=== PATIENT | female | born 1945 | race Caucasian/White ===

== ENCOUNTER → 2016-04-09 | Outpatient (CLI) | payer MEDICARE ==
[2016-04-01 15:24] VITALS: BMI 23.8
[2016-04-09 14:13] VITALS: BP 148/72; PULSE 71; RESP 16; TEMP 98.1
--- NOTE | 2016-04-09 15:06 | P.CONS ---
History of Present Illness - Reason for Consult Consult date: 04/09/16 - History of Present Illness The initial consultation visit for this 70 years old female, with 2 years history of severe low back pain, he reported that the pain started after she fell at home, and she continued to have severe low back pain, the pain is constant and increased with any activity, and associated with some numbness and tingling in her right lower extremity, mostly to the lateral aspect of right leg , she denies any motor or sensory deficit, he denies any change in the bowel movements or urination, she has no fever or night sweats, she had lumbar epidural steroid injection, and transforaminal epidural steroid injection and she get no benefit from it, she had physical therapy with some benefit, she tried Neurontin and she had side effects from it (hallucination ), intensity of the pain 8/10 increased to 10 over 10, she is ambulating using a walker/cane Past Medical History Past Medical History: Neurologic Disorder Additional Past Medical History / Comment(s): Hx Parkinsons. History of Any Multi-Drug Resistant Organisms: None Reported Past Surgical History: Hysterectomy Past Anesthesia/Blood Transfusion Reactions: No Reported Reaction Past Psychological History: Anxiety, Depression Smoking Status: Never smoker Past Alcohol Use History: Rare Past Drug Use History: None Reported - Past Family History Mother Family Medical History: No Reported History Medications and Allergies Home Medications Medication Instructions Recorded Confirmed Type Acetaminophen [Tylenol] 325 mg PO Q4H PRN 04/01/16 04/09/16 History Baclofen 10 mg PO HS 04/01/16 04/09/16 History Carbidopa-Levodopa 25-100 mg 1 each PO TID 04/01/16 04/09/16 History [Sinemet 25-100] Meloxicam [Mobic] 7.5 mg PO BID 04/01/16 04/09/16 History Menthol [Biofreeze] 1 applic TOPICAL DAILY 04/01/16 04/09/16 History Allergies Allergy/AdvReac Type Severity Reaction Status Date / Time gabapentin [From Neurontin] AdvReac Severe Unknown Verified 04/09/16 13:49 Physical Exam Vitals: Vital Signs Temp Pulse Resp BP Pulse Ox 04/09/16 14:03 98.1 F 71 16 148/72 99 Social history : not smoker , NO ETOH , NO Illegal drugs use Review of Systems : 1- Constitutional : no chills , no fever , no night sweats , 2- Ears : no ear discharge , no change in hearing 3-Nose, Mouth ,Throat ; no bleeding gums, no sore throat , no epistaxis , 4-Cardiovascular : Denies chest pain, , no orthopnea , no palpitation 5-Respiratory : Denies cough , no dyspnea , no hemoptysis 6-Gastrointestinal :, no change in bowel habits , no coffee- ground emesis . 7-Genitourinary : No hematuria , no discharge , no incontinence, 8-Musculoskeletal : No gait dysfunction , report low back pain , 9- Neurological : Parkinson 10-Psychatric , no suicidal ideation no hallucination , depressed mood 11- Endocrine : no cold intolerence , no polyuria , no polydypsia , 12-Hematologic : no easy bleeding , no easy brusing , 13-Allergic / immunology : no angioedema , no wheezing ,no allergic rhinitis 14-Integumentary : no brttle nails , no change hair / nails , no foot/leg ulcers . Physical Examinations : 1-Constitutional : Cooperative , not in acute distress . 2-HEENT : nech ; supple , no Lymphadenopathy , no Thyromegaly , :eyes , no icterus, no photophobia . ENT : , normal oropharynx , no Thrush 3- Respiratory : Chest clear to auscultations Bilaterally , no wheezing . 4- Cardiovascular : regular rate and rhythem , S1 , S2 , no S3 , no S4. 5- Gastrointestinal: abdomen soft no tenderness , no organomegally . 6- Genitourinary : Defferred . 7-Integumentary : No cellulitis , no ulcers , normal skin turgor , no cyanotic . 8- neurologic : Cranial nerve II to XII intact , no focal neurological deffecit 9-psychatric : alert , oriented X 3 , appropriate affect , intact judgment and insight . 10-Lymphatic : no Lymphadenopathy. 11- musculoskeltal: normal gait , exams of the cervical spine = motor stregnth in the deltoid and biceps, normal right side , normal Left side exams of the Lumber spine = moter stegnth lower extremities , thigh and legs 5/5 Right side , 5/5 Left side deep tendon reflexes : normal Knee Jerk , normal ankle Jerk positive lumber facet Loading Test Range of motion of the lumbar spine Flexion 60 degrees, extension 10 degrees strait leg raising test negative bilaterally Fabere test negative bilaterally Results Comments: MRI of the lumbar spine= done at [facility] L4 5 and L5-S1 severe degenerative disc disease and lumbar facet arthropathy, and spondylolisthesis Assessment and Plan Plan: Assessment and plan = - Chronic low back pain secondary to lumbar degenerative disc disease , lumbar spondylosis with facet arthropathy without myelopathy , Patient underwent lumbar epidural steroid injections and transforaminal epidural steroid injection without any benefit -diagnoses, prognosis, and treatment options including but not limited to physical therapy, surgical interventions, interventional therapies and medication management including narcotics and adjuvant medication were discussed with the patient and all questions answered to the patient's satisfaction. -medication refile = patient should continue baclofen 10 mg daily at bedtime , and she should continue Mobic 7.5 mg twice a day, Prescription for Lyrica 25 mg daily at bedtime increase after 1 week to 25 mg twice a day -procedure= patient will be good candidate for diagnostic medial branch block lumbar area at L3-4/L4 5/L5-S1 and if she benefits from and then we will proceed with a radiofrequency ablation of the medial branch lumbar area, procedure risks and benefits and alternatives discussed with the patient she agreed with proceeding Time with Patient: Greater than 30
== END | disposition home or self-care (01) ==
LOC: PNWHC3 13:33
PROVIDERS: ATTEND Specialist
DX: M51.36 Other intervertebral disc degeneration, lumbar region (principal); M47.816 Spondylosis without myelopathy or radiculopathy, lumbar region; M46.96 Unspecified inflammatory spondylopathy, lumbar region; M43.16 Spondylolisthesis, lumbar region; Z91.81 History of falling; Z79.899 Other long term (current) drug therapy; Z88.8 Allergy status to other drugs, medicaments and biological substances; F41.9 Anxiety disorder, unspecified; F32.9 Major depressive disorder, single episode, unspecified; G20 Parkinson's disease; T42.6X5A Adverse effect of other antiepileptic and sedative-hypnotic drugs, initial encounter
CPT/HCPCS: 99211

== ENCOUNTER 2016-05-10 09:10 | Emergency (ER) | payer MEDICARE ==
[2016-05-10 09:16] VITALS: TEMP 97
[2016-05-10] MEDS ORDERED: IBUPROFEN 600 MG TAB PO STA (09:23)
--- NOTE | 2016-05-10 09:27 | ED ---
General Adult HPI <Bigg Salgado - Last Filed: 05/10/16 11:31> - General Source: patient, EMS Mode of arrival: EMS Limitations: no limitations <Wayne Shannon - Last Filed: 05/10/16 12:32> - General Chief complaint: Extremity Injury, Upper Stated complaint: Right Arm Injury Time Seen by Provider: 05/10/16 09:10 - History of Present Illness Initial comments: 62-year-old female patient presents to emergency department today for complaints of right upper arm pain after she expressed a fall at home. Patient states she was walking in her bedroom tripped and fell and hit her right arm on a metal bed frame. Patient denies hitting her head or losing consciousness. Patient denies any head, neck, or back pain. Patient denies any use of anticoagulants. Patient does have a history of Parkinson's. She denies any shortness of breath, chest pain, back pain, dizziness, weakness, abdominal pain , nausea, vomiting, diarrhea, constipation, hematuria, dysuria, urinary urgency or frequency. (Wayne Shannon) - Related Data Home Medications Medication Instructions Recorded Confirmed Carbidopa-Levodopa 25-100 mg 1 tab PO TID 04/01/16 05/10/16 [Sinemet 25-100] Meloxicam [Mobic] 7.5 mg PO BID 04/01/16 05/10/16 DULoxetine HCL [DULoxetine HCL] 20 mg PO DAILY 05/10/16 05/10/16 Previous Rx's Medication Instructions Recorded Hydrocodone/Acetaminophen [Artesia 1 tab PO Q6HR PRN #20 tab 05/10/16 5-325] Allergies Allergy/AdvReac Type Severity Reaction Status Date / Time gabapentin [From Neurontin] AdvReac Severe FALLING Verified 05/10/16 10:40 Review of Systems ROS Other: All systems not noted in ROS Statement are negative. <Bigg Salgado - Last Filed: 05/10/16 11:31> ROS Other: All systems not noted in ROS Statement are negative. <Wayne Shannon - Last Filed: 05/10/16 12:32> ROS Statement: Those systems with pertinent positive or pertinent negative responses have been documented in the HPI. Past Medical History Past Medical History: Neurologic Disorder Additional Past Medical History / Comment(s): Hx Parkinsons. History of Any Multi-Drug Resistant Organisms: None Reported Past Surgical History: Hysterectomy Past Anesthesia/Blood Transfusion Reactions: No Reported Reaction Past Psychological History: Anxiety, Depression Smoking Status: Never smoker Past Alcohol Use History: Rare Past Drug Use History: None Reported - Past Family History Mother Family Medical History: No Reported History <GenarogennaroWayne Sharon - Last Filed: 05/10/16 12:32> General Exam General appearance: alert, in no apparent distress Head exam: Present: atraumatic, normocephalic, normal inspection Eye exam: Present: normal appearance, PERRL, EOMI. Absent: scleral icterus, conjunctival injection, periorbital swelling ENT exam: Present: normal exam, mucous membranes moist Neck exam: Present: normal inspection. Absent: tenderness, meningismus, lymphadenopathy Respiratory exam: Present: normal lung sounds bilaterally. Absent: respiratory distress, wheezes, rales, rhonchi, stridor Cardiovascular Exam: Present: regular rate, normal rhythm, normal heart sounds. Absent: systolic murmur, diastolic murmur, rubs, gallop, clicks GI/Abdominal exam: Present: soft, normal bowel sounds. Absent: distended, tenderness, guarding, rebound, rigid Extremities exam: Present: normal inspection, full ROM, normal capillary refill , other (Right shoulder deformity, dislocation). Absent: tenderness, pedal edema, joint swelling, calf tenderness Back exam: Present: normal inspection Neurological exam: Present: alert, oriented X3, CN II-XII intact Psychiatric exam: Present: normal affect, normal mood Skin exam: Present: warm, dry, intact, normal color. Absent: rash <Bigg Salgado - Last Filed: 05/10/16 11:31> Limitations: no limitations General appearance: alert, in no apparent distress Head exam: Present: atraumatic, normocephalic, normal inspection Eye exam: Present: normal appearance, PERRL, EOMI. Absent: scleral icterus, conjunctival injection, periorbital swelling Pupils: Present: normal accommodation ENT exam: Present: normal exam, mucous membranes moist, TM's normal bilaterally Neck exam: Present: normal inspection, full ROM. Absent: tenderness, meningismus, lymphadenopathy Respiratory exam: Present: normal lung sounds bilaterally. Absent: respiratory distress, wheezes, rales, rhonchi, stridor Cardiovascular Exam: Present: regular rate, normal rhythm, normal heart sounds. Absent: systolic murmur, diastolic murmur, rubs, gallop, clicks GI/Abdominal exam: Present: soft, normal bowel sounds. Absent: distended, tenderness, guarding, rebound, rigid Extremities exam: Present: normal inspection, tenderness (Right upper arm over the proximal humerus), normal capillary refill. Absent: full ROM (Limited range of motion to the right arm due to pain with movement), pedal edema, joint swelling, calf tenderness Back exam: Present: normal inspection. Absent: tenderness Neurological exam: Present: alert, oriented X3, CN II-XII intact Psychiatric exam: Present: normal affect, normal mood Skin exam: Present: warm, dry, intact, normal color. Absent: rash <Wayne Shannon - Last Filed: 05/10/16 12:32> Course <Bigg Salgado - Last Filed: 05/10/16 11:31> <Wayne Shannon - Last Filed: 05/10/16 12:32> Vital Signs 05/10/16 05/10/16 05/10/16 09:11 11:17 11:21 Temperature 97.0 F L Pulse Rate 63 85 85 Respiratory 20 16 16 Rate Blood Pressure 197/81 207/91 180/76 O2 Sat by Pulse 97 99 99 Oximetry 05/10/16 05/10/16 05/10/16 11:23 11:26 11:30 Temperature Pulse Rate 76 86 91 Respiratory 14 14 14 Rate Blood Pressure 158/89 178/79 200/86 O2 Sat by Pulse 98 98 99 Oximetry 05/10/16 05/10/16 05/10/16 11:32 11:39 11:43 Temperature Pulse Rate 91 91 93 Respiratory 18 16 20 Rate Blood Pressure 195/83 185/81 175/81 O2 Sat by Pulse 99 100 100 Oximetry 05/10/16 11:45 Temperature Pulse Rate 90 Respiratory 16 Rate Blood Pressure 160/82 O2 Sat by Pulse 100 Oximetry - Reevaluation(s) Reevaluation #1: 05/10/16 11:33 Unable to satisfactorily or satisfactory poorly reduced right shoulder secondary to fracture (Bigg Salgado) Procedures - Orthopedic Fracture Reduction Fracture #1 Consent Obtained: verbal consent Time Out Performed: Yes Side: right Fracture Reduction Location: humerus Analgesia: procedural sedation Technique: direct manipulation, traction/counter-traction Post Reduction X-rays Demonstrate: other (failed) Post-Reduction Neuro Exam: intact Post-Reduction Vascular Exam: intact Splint Applied: Yes Patient Tolerated Procedure: well - Orthopedic Joint Reduction Joint #1 Consent Obtained: verbal consent Time Out Performed: Yes Side: right Joint Reduction Location: shoulder Analgesia: procedural sedation Shoulder Technique Used (if applicable): traction/counter-traction, Milch, Linda Post-Reduction Neuro Exam: intact Post-Reduction Vascular Exam: intact Post Reduction X-Ray Obtained: Yes Post Reduction X-Ray Results: not reduced Splint Applied: Yes Patient Tolerated Procedure: well - Orthopedic Splinting/Casting Injury #1 Side: right Upper Extremity Injury Location: shoulder Upper Extremity Immobilizer: sling/shoulder immobilizer - Procedural Sedation Indications: fracture/dislocation reduction ASA Class: I Mallampati Airway Score: 1 Preparation: cupola patcher applied, pulse oximeter, capnometry used Midazolam: IV Midazolam Dose: 1 Ketamine: IV Ketamine Dose: 50 Complications: none Interventions: oxygen applied Patient Tolerated Procedure: well <Bigg Salgado - Last Filed: 05/10/16 11:31> Medical Decision Making <Bigg Salgado - Last Filed: 05/10/16 11:31> - Radiology Data Radiology results: report reviewed <Wayne Shannon - Last Filed: 05/10/16 12:32> - Medical Decision Making 70-year-old female patient presented today for complaints of right arm pain after expressing a fall at home. X-ray did show a fracture dislocation. Reduction was attempted in the emergency department without success. Did speak to Raudel Farias [facility]-c [facility] who requested a CT and a shoulder immobilizer. Patient did receive CT. Appointment was made at [facility] for the patient at 1 PM today, will be driving patient to this appointment. She will be discharged with a prescription for Artesia for pain control. Patient and agree to this plan. (Wayne Shannon) - Radiology Data X-ray right shoulder shows a fracture dislocation of the right shoulder. The majority humeral head remains anteriorly dislocated. There is a avulsion of the greater tubercle of the humerus. (Wayne Shannon) Disposition <Bigg Salgado - Last Filed: 05/10/16 11:31> Time of Disposition: 12:30 <Wayne Shannon M - Last Filed: 05/10/16 12:32> Clinical Impression: Dislocation of shoulder, right, closed, Proximal humeral fracture Disposition: HOME SELF-CARE Condition: Stable Instructions: Arm Fracture in Adults (ED), Shoulder Dislocation (ED) Additional Instructions: [facility]ment at [facility] at 1 PM today. Wear shoulder immobilizer. Apply ice 20 minutes at a time at least 4 times daily. Return for any worsening, new, or concerning symptoms. Prescriptions: Hydrocodone/Acetaminophen [Artesia 5-325] 1 tab PO Q6HR PRN #20 tab PRN Reason: Pain Referrals: Susan Villalobos MD [Primary Care Provider] - 1-2 days Shantanu Garnica MD [STAFF PHYSICIAN] - 1-2 days
[2016-05-10] MEDS ORDERED: KETAMINE 10 MG/ML 20 ML VIAL IV ONE (10:06)
[2016-05-10] MEDS ORDERED: MIDAZOLAM (PF) 1 MG/ML 5 ML VIAL IV STA (10:06)
--- NOTE | 2016-05-10 10:13 | XR ---
EXAMINATION TYPE: XR humerus RT DATE OF EXAM ORDERED: 05/10/2016 10:03 AM HISTORY: Pain. COMPARISON: None. FINDINGS: There is an anterior dislocation of the shoulder. There has been avulsion of the greater t uberosity of the humerus. No other fracture is seen. IMPRESSION: FRACTURE DISLOCATION OF THE RIGHT HUMERAL HEAD.
[2016-05-10] MEDS: SODIUM CHLORIDE 0.9% 500 ML IV ONE ×2 (10:33→11:14)
[2016-05-10] MEDS ORDERED: ONDANSETRON 4 MG/2 ML VIAL IVP STA (11:03)
[2016-05-10] MEDS ORDERED: MORPHINE SULFATE 4 MG/ML SYRINGE IVP STA (11:03)
--- NOTE | 2016-05-10 11:44 | XR ---
EXAMINATION TYPE: XR shoulder limited RT DATE OF EXAM ORDERED: 05/10/2016 11:36 AM HISTORY: Pain. COMPARISON: Previous study of earlier today. FINDINGS: There is a fracture dislocation of the right shoulder. The majority humeral head remains a nteriorly dislocated. There is been a avulsion of the greater tubercle of the humerus. IMPRESSION: FRACTURE DISLOCATION OF THE RIGHT SHOULDER.
[2016-05-10 11:46] VITALS: RESP 16
--- NOTE | 2016-05-10 12:50 | CT ---
EXAMINATION TYPE: CT shoulder RT wo con DATE OF EXAM: 05/10/2016 12:37 PM COMPARISON: Right shoulder x-ray from earlier today. HISTORY: Fall CT DLP: 268.5 mGycm Automated exposure control for dose reduction was used. CT right shoulder is performed without contrast. Three-D reconstructed images are created. FINDINGS: Acute comminuted fracture through the proximal humeral metaphysis is redemonstrated. There is large f racture fragment involving the medial humeral head which is dislocated medially and inferiorly (anter ior dislocation) measuring 3.7 x 2.3 cm on coronal image 49. There is curvilinear 2.4 x 1.1 cm fragme nt involving the superior lateral humeral head including greater and lesser tuberosity on coronal brian ge 49. (Hill-Sachs type injury) There are multiple smaller additional fracture fragments centrally al l measuring subcentimeter in size. There is impaction of the distal humeral component noted. The lonnie oid remains intact. Acromioclavicular joint is preserved. Visualized ribs are intact. Visualized lung is clear. Moderate diffuse subcutaneous edema and/or hematoma anteriorly in the proximal right arm is present e xtending inferiorly centered near axial image 47. There is focal subcutaneous swelling and hematoma p osteriorly near axial image 25 seen superior to this. There is more focal hematoma in the right infer ior posterior axilla anterior and lateral to the inferior scaphoid seen best near axial image 48. IMPRESSION: ACUTE COMMINUTED DISPLACED PROXIMAL RIGHT HUMERAL FRACTURE IS CONFIRMED DETAILED ABOVE. SUSPECT TH REE PART FRACTURE IN NEER CLASSIFICATION.
[2016-05-10 13:02] VITALS: BP 179/81; PULSE 88
== END 2016-05-10 12:59 | disposition home or self-care (01) ==
LOC: EC 09:10
DX: S42.251A Displaced fracture of greater tuberosity of right humerus, initial encounter for closed fracture (principal); G20 Parkinson's disease; Z79.899 Other long term (current) drug therapy; Z88.8 Allergy status to other drugs, medicaments and biological substances; S42.201A Unspecified fracture of upper end of right humerus, initial encounter for closed fracture
CPT/HCPCS: 73020; 73060; 73200; 23605; 99284; 96374; 96375; 96361; L3670 ×2; J2270; J2405; J2250; 25505

== ENCOUNTER 2016-05-10 15:21 | Inpatient (IN) | payer MEDICARE ==
[2016-05-10] MEDS ORDERED: PROCHLORPERAZINE SUPPOSITORY 25 MG SUPP RECTAL PRN (15:42)
[2016-05-10] MEDS ORDERED: ONDANSETRON 4 MG/2 ML VIAL IVP PRN (15:42)
[2016-05-10] MEDS ORDERED: METOCLOPRAMIDE 5 MG/ML 2 ML VIAL IVP PRN (15:42)
[2016-05-10] MEDS ORDERED: hydrOXYzine PAMOATE 25 MG CAP PO PRN (15:42)
[2016-05-10] MEDS ORDERED: TEMAZEPAM 15 MG CAP PO PRN (15:42)
[2016-05-10] MEDS ORDERED: SENNOSIDES-DOCUSATE SODIUM 1 EACH TAB PO PRN (15:42)
[2016-05-10] MEDS ORDERED: HYDROmorphone 1 MG/ML 1 ML SYRINGE IVP PRN ×3 (15:42)
[2016-05-10] MEDS ORDERED: diphenhydrAMINE 25 MG CAP PO PRN (15:42)
--- NOTE | 2016-05-10 16:47 | P.HPOR ---
History of Present Illness H&P Date: 05/10/16 Chief Complaint: Right proximal humerus fracture Patient is a 70 year old female who presented to our office for evaluation of her right shoulder. She sustained injury to her shoulder when she fell while getting out of bed to use the bathroom this morning, 05/10/16. Patient had immediate onset of pain at the time of injury. She was unable to move secondary to pain and she was taken to [facility] by ambulance this morning. Patient had x-rays and CT scan which showed fracture/dislocation of her right shoulder. Patient was instructed to follow up with orthopedics.The patient is left hand dominant. She is denying numbness or tingling. Pertinent PMH includes Parkinson's disease. Review of systems is negative for fever, chills, chest pain, shortness of breath, dizziness, rash, bleeding, nausea, vomitting or other. Review of Systems All systems: negative Constitutional: Denies chills, Denies fever Eyes: denies blurred vision, denies pain Ears: deny: ear discharge, earache Ears, nose, mouth and throat: Denies headache, Denies sore throat Cardiovascular: Denies chest pain, Denies shortness of breath Respiratory: Denies cough Gastrointestinal: Denies abdominal pain, Denies diarrhea, Denies nausea, Denies vomiting Genitourinary: Denies dysuria, Denies hematuria Musculoskeletal: Denies myalgias Integumentary: Denies pruritus, Denies rash Neurological: Denies migraines, Denies numbness Psychiatric: Denies anxiety, Denies depression Endocrine: Denies deepening of the voice, Denies weight change Past Medical History Past Medical History: Neurologic Disorder Additional Past Medical History / Comment(s): Hx Parkinsons. History of Any Multi-Drug Resistant Organisms: None Reported Past Surgical History: Hysterectomy Past Anesthesia/Blood Transfusion Reactions: No Reported Reaction Past Psychological History: Anxiety, Depression Smoking Status: Never smoker Past Alcohol Use History: Rare Past Drug Use History: None Reported - Past Family History Mother Family Medical History: No Reported History Medications and Allergies Home Medications Medication Instructions Recorded Confirmed Type Carbidopa-Levodopa 25-100 mg 1 tab PO TID 04/01/16 05/10/16 History [Sinemet 25-100] Meloxicam [Mobic] 7.5 mg PO BID 04/01/16 05/10/16 History DULoxetine HCL [DULoxetine HCL] 20 mg PO DAILY 05/10/16 05/10/16 History Allergies Allergy/AdvReac Type Severity Reaction Status Date / Time gabapentin [From Neurontin] AdvReac Severe FALLING Verified 05/10/16 15:56 Physical Examination Vital Signs: Height 5ft Weight 125lbs BMI 24.41 Constitutional: She is adequately groomed with no evidence of malnutrition. Skin: There are no rashes, ulcerations or lesions in the regions examined. Mental Status: She is oriented to time, place and person. Her mood and affect are appropriate. Lymphatic: The lymphatic evaluation of the area examined is without enlargement or induration. Vascular: Examination reveals no swelling or calf tenderness. Peripheral pulses are palpable and 2+. Neurological: She has good coordination. There is no weakness or sensory deficit. Deep tendon reflexes are intact. Respiratory: No labored effort. No accessory muscle use. HEENT: Normal cephalic atraumatic. Extraocular movements are intact. NEUROLOGICAL: Patient is alert and oriented x3. Cranial nerves, speech, memory, recall, cognition are grossly intact. Right Shoulder Examination C-Spine: Normal (No tenderness to palpation, Full flexion, extension and rotation without pain, negative Spurlings test) Pain to palpation: at proximal humerus where there is deformity No wounds or lacerations ROM at shoulder not tested due to fracture/dislocation Motor at elbow, wrist, hand and fingers intact Neurovascular status: There is an intact EPL, FPL, extensor indicis, hand intrinsics and the FDP to the small finger. Intact radial, median and ulnar nerve sensations as well as 2+ radial pulse and brisk capillary refill distally. Results X-rays and CT obtained from [facility] show a four-part fracture dislocation of her right proximal humerus with the humeral head dislocated anteriorly and intra-axillary - Diagnostic results Shoulder x-ray: report reviewed, image reviewed Shoulder CT: report reviewed, image reviewed Assessment and Plan (1) Proximal humeral fracture Narrative/Plan: Patient has been admitted and scheduled for reverse right total shoulder arthroplasty this evening per Dr. Clemons. She has been NPO since this morning and will continue until post op. The procedure has been scheduled including pre op antibiotics. She will continue with pain management, sling, DVT prophylaxis, and medical management. Expect D/C to rehab or home in next one two days Status: Acute Time with Patient: Greater than 30
--- NOTE | 2016-05-10 17:20 | XR ---
EXAMINATION TYPE: XR chest 1V portable DATE OF EXAM: 05/10/2016 5:06 PM COMPARISON: NONE HISTORY: Preop TECHNIQUE: Single frontal view of the chest is obtained. FINDINGS: There is no heart failure nor confluent pneumonic infiltrate. Thoracic aorta is atheromato us. There are no hilar masses. Costophrenic angles are clear. IMPRESSION: No active cardiopulmonary disease. There is significant deformity in the right shoulder with a comminuted and severely displaced fracture of the humeral neck. There is dislocated humeral he ad.
[2016-05-10] MEDS ORDERED: TRANEXAMIC ACID 1,000 MG in SODIUM CHLORIDE 0.9% 100 ML IVPB PRN (17:30)
[2016-05-10 17:36] LABS: Basophils % (A) 0 %; CH 29.1; CHCM 32.3; Eosinophils % (A) 0 %; HCT 31.6 % (34.0-46.0); HDW 2.75; HGB 10.3 gm/dL (11.4-16.0); Luc # (Auto) 0.11; Luc % (Auto) 1; Lymphocytes % (A) 10 %; MCH 29.6 pg (25.0-35.0); MCHC 32.7 g/dL (31.0-37.0); MCV 90.4 fL (80.0-100.0); Mean Platelet Volume 6.9; Monocytes # (A) 0.5 k/uL (0-1.0); Monocytes % (A) 5 %; Neutrophils # (A) 8.3 k/uL (1.3-7.7); Neutrophils % (A) 84 %; RBC 3.49 m/uL (3.80-5.40); RDW 12.8 % (11.5-15.5); WBC 9.8 k/uL (3.8-10.6); WBC (Perox) 10.16
[2016-05-10 17:53] LABS: ALT 14 U/L (9-52); AST 16 U/L (14-36); Alkaline Phosphatase 77 U/L (38-126); Anion Gap 9 mmol/L; Blood Urea Nitrogen 22 mg/dL (7-17); Calcium 8.6 mg/dL (8.4-10.2); Carbon Dioxide 23 mmol/L (22-30); Chloride 107 mmol/L (98-107); Glucose 111 mg/dL (74-99); Non-African American GFR(MDRD) >60 (>60 ml/min/1.73 sqM); Potassium 4.9 mmol/L (3.5-5.1); Sodium 139 mmol/L (137-145); Total Bilirubin 0.6 mg/dL (0.2-1.3); Total Protein 6.1 g/dL (6.3-8.2)
[2016-05-10] MEDS ORDERED: VANCOMYCIN IVPB ONE (18:00)
[2016-05-10] MEDS ORDERED: ROCURONIUM BROMIDE 10 MG/ML 10 ML VIAL IV ONE (18:01)
[2016-05-10] MEDS ORDERED: LIDOCAINE 1% INJ 10MG/ML (20 ML MDV) ONE (18:01)
[2016-05-10] MEDS ORDERED: PROPOFOL 10 MG/ML 20 ML VIAL IV ONE (18:01)
[2016-05-10] MEDS ORDERED: TRANEXAMIC ACID 1,000 MG/10 ML VIAL ONE (18:01)
[2016-05-10] MEDS ORDERED: HYDROmorphone (PF) 1 MG/ML ONE (18:01)
[2016-05-10] MEDS ORDERED: KETOROLAC 30 MG/ML 1 ML VIAL ONE (18:01)
[2016-05-10] MEDS ORDERED: fentaNYL (PF) 50 MCG/ML 2 ML AMP ONE (18:01)
[2016-05-10] MEDS ORDERED: ceFAZolin 1,000 MG VIAL ONE (18:01)
[2016-05-10] MEDS ORDERED: PHENYLEPHRINE-0.9% NACL SYG 1 MG/10 ML SYRINGE ONE (18:01)
[2016-05-10] MEDS ORDERED: MIDAZOLAM 2 MG/2 ML VIAL ONE (18:01)
[2016-05-10] MEDS ORDERED: DEXAMETHASONE SOD PHOS (MDV) 100 MG/10 ML VIAL ONE (18:01)
[2016-05-10] MEDS ORDERED: SUCCINYLCHOLINE CHLORIDE 100 MG/5 ML SYR IV ONE (18:01)
[2016-05-10] MEDS ORDERED: LACTATED RINGERS 1,000 ML IV ONE ×2 (18:01→19:00)
[2016-05-10] MEDS ORDERED: SODIUM CHLORIDE 0.9% 100 ML BAG ONE (18:01)
[2016-05-10] MEDS ORDERED: ONDANSETRON 4 MG/2 ML VIAL ONE (18:01)
[2016-05-10] MEDS: ceFAZolin 2 GM in SODIUM CHLORIDE 0.9% 100 ML IVPB SCH ×2 (18:11→22:58)
[2016-05-10] MEDS ORDERED: HYDROcodone/APAP 7.5-325MG 1 EACH TAB PO PRN (19:00)
[2016-05-10] MEDS ORDERED: ceFAZolin 3,000 MG in SODIUM CHLORIDE 0.9% IRRIGATIO 3,000 ML IRRIGATION ONE (19:10)
[2016-05-10] MEDS ORDERED: VANCOMYCIN 1,000 MG VIAL MISCELLANE ONE (20:00)
[2016-05-10 20:45] VITALS: RESP 16
--- NOTE | 2016-05-10 20:59 | XR ---
EXAMINATION TYPE: XR shoulder limited RT DATE OF EXAM: 05/10/2016 8:50 PM COMPARISON: Today HISTORY: Surgery. Postop. TECHNIQUE: Single view FINDINGS: There is a new right shoulder prosthesis. Components are in anatomic position. IMPRESSION: I see no complicating process. Right shoulder prosthesis.
[2016-05-10] MEDS ORDERED: hydrALAZINE HCL 20 MG/ML 1 ML VIAL IVP ONE (21:05)
[2016-05-10] MEDS: LACTATED RINGERS 1,000 ML IV SCH (22:53)
[2016-05-10] MEDS: DOXYCYCLINE 50 MG CAP PO SCH (22:53)
[2016-05-11] MEDS: HYDROcodone/APAP 7.5-325MG 1 EACH TAB PO PRN ×2 (00:30→14:12)
[2016-05-11] MEDS: LACTATED RINGERS 1,000 ML IV SCH ×2 (02:52→13:03)
[2016-05-11] MEDS: ceFAZolin 2 GM in SODIUM CHLORIDE 0.9% 100 ML IVPB SCH (07:06)
[2016-05-11] MEDS: DOXYCYCLINE 50 MG CAP PO SCH ×2 (07:07→21:07)
[2016-05-11 08:47] VITALS: BMI 23.2
[2016-05-11 09:54] LABS: Appearance,Urine Clear (Clear); Bilirubin,Urine Negative (Negative); Glucose,Urine (UA) Trace (Negative); Ketones,Urine Negative (Negative); Leukocyte Esterase,Urine Negative (Negative); Nitrite,Urine Negative (Negative); PH, Urine 5.5 (5.0-8.0); Protein,Urine Negative (Negative); Specific Gravity,Urine 1.017 (1.001-1.035); UA Billing (MACRO vs. MICRO) CHEM; Urobilinogen,Urine <2.0 mg/dL (<2.0)
--- NOTE | 2016-05-11 10:20 | P.PN ---
Progress Note - Text Postoperative day #1 Patient is seen and examined today at bedside. The patient has some pain around the surgical site as expected. Pain is being controlled with medication. She is not been having nausea. She denies any numbness tingling in her hand and wrist. She is able to move her hand Physical Exam Afebrile with stable vital signs Abdomen is soft nontender. Chest has good excursion deep and space expiration The incision site is clean dry and intact. dressing is intact. Drain has been removed. No erythema there is no purulence. Extremities have not had neurologic change from prior to surgery. her upper SOFT. She has motion at her elbow or wrist hand and fingers. Calves and thighs were soft nontender without evidence of DVT. Assessment/Plan Postoperative day #1 status post reverse total shoulder arthroplasty for her comminuted displaced proximal femur fracture Patient is progressing as expected from the surgery. she has had a like to see how she does sitting up and mobilizing further with physical therapy. She is worried about her situation when she goes home and we will consult case management for discharge planning We will continue to increase the patient's mobilization with therapy. We will continue pain control with oral or IV medications. We'll continue to follow patient closely.
--- NOTE | 2016-05-11 10:49 | P.PN ---
Progress Note - Text Patient is very pleasant 70-year-old female who is seen and examined at bedside for follow-up evaluation after undergoing a right reverse total shoulder arthroplasty following a right proximal humerus fracture performed by Dr. Tomas Clemons and Dr. Félix Cui yesterday, 05/10/2016. Postsurgically, she continued to have some pain at the surgical site. She is also having some difficulty with urination following surgery. Her Campoverde catheter had been discontinued. She had a straight catheterization performed this morning. If she continues to have residual difficulty with voiding, a Campoverde catheter may be reinserted. We are planning to order a urinalysis this morning. Physical Exam: Patient is awake, alert, and oriented 3 Vital signs stable Good chest excursion with deep inspiration and expiration Abdomen soft nontender No signs or symptoms of DVT; no calf pain Dressing over the right shoulder remains clean, dry, and intact Drainage right shoulder surgical site is removed during physical examination Sling intact right upper extremity Patient able to wiggle all fingers and thumb and perform wrist flexion and extension of the right upper extremity has significant difficulty Neurovascularly intact right upper extremity Range of motion of the right elbow without difficulty Assessment: Status post day 1 right reverse total shoulder arthroplasty for comminuted displaced proximal humeral fracture Urinary retention Her incisions disease Plan: 1. Patient should continue to remain nonweightbearing on the right upper extremity; sling should remain intact at all times 2. We will order a urinalysis for further evaluation 3. Continue pain control with oral and IV pain medications 4. Continue to increase patient's mobilization with therapy 5. We will continue to follow patient closely
--- NOTE | 2016-05-11 11:46 | OP ---
DATE OF SERVICE: 05/10/2016 SURGEON: MARISA OLVERA MD FINGERNAIL FORMER: NATALY ADRIAN DO PREOPERATIVE DIAGNOSIS: Right shoulder displaced four-part proximal humerus fracture-dislocation. POSTOPERATIVE DIAGNOSIS: Right shoulder displaced four-part proximal humerus fracture-dislocation. OPERATION: Right reverse total shoulder arthroplasty. ANESTHESIA: General endotracheal. ESTIMATED BLOOD LOSS: 300 mL. SPECIMENS REMOVED: COMPLICATIONS: None apparent. DRAINS: Deep drain. DISPOSITION: Postanesthesia care unit. SPECIMENS REMOVED: OPERATIVE FINDINGS: INDICATIONS: Mrs. Mcqueen is a very pleasant 70-year-old female who injured her right shoulder this morning getting out of bed. She fell against the steel post on the bed and had immediate in intense right shoulder pain. She was brought to [facility] emergency department via ambulance. X-rays revealed a four-part proximal humeral fracture humerus fracture-dislocation. CT scan confirmed that. She was initially placed into a sling and discharged. She then presented to our office. She presented to see one of my partners and then she was referred to me within our office for management of her right proximal humerus fracture-dislocation. Due to the severe displacement of the humeral head and a complete displacement of the humeral head along with the comminution of greater and lesser tuberosity, operative options included a hemiarthroplasty versus reverse total shoulder arthroplasty. 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 My recommendation was to go forward with a reverse total shoulder arthroplasty as I felt this would give her the quickest chance for recovery and best long-term outcome option. Her was with her in the office. We discussed this in detail. The risks of the procedure were all discussed with Mrs. Mcqueen and Mr. Mcqueen in detail. These risks included but are not limited to risk of infection, nerve damage, bleeding, pain, instability in the shoulder, loosening of implants and deep infection. There is also a small risk of deep vein thrombosis, which could lead to fatal pulmonary embolism. The patient and her understood the risks. All of their questions with regards to the risks of the procedure were answered to their satisfaction. Appropriate informed consent was obtained. DESCRIPTION OF THE PROCEDURE: The patient was identified in the preoperative holding area. Surgical sites was marked by both the patient and myself. She was given 2 grams of Ancef IV for prophylactic purposes. She was then transferred to the operative suite where she was placed supine on the operating room table. General anesthetic was then administered and dosed by the anesthesia department without apparent complication. Patient was then placed in the modified beach chair position. Great care was taken to ensure that her cervical spine was well padded and in neutral alignment and maintained that way throughout the entire procedure. Great care was also taken to ensure that her legs were appropriately padded as well. Patient's right upper extremity was then prepped and draped usual sterile fashion. Standard surgical pause was then undertaken to ensure that we were operating on the correct site and that appropriate preoperative antibiotics had been given. All staff in the room were in agreement and we proceeded. The acromion, AC joint, clavicle, and coracoid were marked with a surgical pen. A planned incision starting at the level of clavicle and extending distally over the deltopectoral interval approximately 1 cm lateral to the coracoid was marked with a surgical pen. The incision was then made with a 10 blade scalpel. Dissection was carried down sharply to the deltoid fascia. The deltopectoral interval was clearly identified at the level of the clavicle. A small band retractor was then placed on the proximal deltoid. I then released the deltoid fascia on the lateral aspect of the cephalic vein. The vein was then preserved and left in its bed medially. The cephalic vein was protected throughout the remainder of the entire case. Then I then identified the clavipectoral fascia. This was incised proximally at the level of the coracoacromial ligament. This was done at the lateral aspect of the conjoined tendon. The coracoacromial ligament was left intact. I then used my finger to spread the interval between the conjoined tendon and the subscapularis. I felt for the axillary nerve, which was readily palpable. The humeral head at this point, was also readily palpable up underneath the coracoid. I then cleared the subacromial subdeltoid spaces of bursal and scar tissue. I then utilized a brown retractor to hold the deltoid and expose the wound. I then incised interval between the lesser greater tuberosity and then released the rotator interval. I then placed a tag suture in the lesser tuberosity and retracted this out of the wound medially. I then was able to use my hand to remove the humeral head which was locked anteriorly and underneath the coracoid. This was then delivered from the wound. I then placed another stay suture in the greater tuberosity, which was highly comminuted and very thin. I then delivered the proximal humerus from the wound. This was fairly easy to do for the fracture. There was a very small amount of metaphysis left. I then utilized a starting reamer, started with a 6 mm reamer and reamed up to an 8 mm reamer in the humeral canal. I then started with broach and broach starting with size 6 broach and incrementally went up to a size 8 broach. It was quite loose. I did not have any metaphyseal fit as most of the bone was missing. At this point in time, I realized then, I made a decision to go forward with cemented humeral stem. The stem was then removed. I then was able to easily expose the glenoid. Bhattman retractor was placed onto the posterior glenoid rim and a small Bhattman retractor was placed on the anterior glenoid rim. I then removed the labrum from around the edge of the glenoid. The long head of biceps was also tenotomized at this point. Again exposure of the glenoid was excellent for obvious reasons. I then placed the guide. I had a 10 degrees inferior tilt. This was placed in the center of the glenoid. She had a very small glenoid. This was a mini ( ) guide. The pin was then placed in the center of the glenoid with good bone and again with an inferior 10 degrees inferior tilt. I then utilize a small mini reamer. This was then taken down and preferentially took more inferior bone and superior bone. This allowed for a 10 degrees inferior tilt to the baseplate. I then placed a mini baseplate. This fit very nicely. This was impacted. I then placed a size 30 central screw. This screw had excellent purchase in the scapula. The bite was excellent and the screw to the point where I could rotate her scapula once it was seated firmly. I then proceeded to place the peripheral locking screws. I placed a superior 5.0 mm locking screw which was 25 mm in length and the inferior locking screw which was 25 mm in length. The anterior and posterior screws were not placed as it would require smaller screws than what was available. I then placed a 36 mm glenosphere. This was offset to the point where the ball was placed as inferior as possible. This was then placed onto the Elaine taper of the baseplate and impacted in place. I then proceeded to place a trial stem to ensure that my height was okay. The standard tray and standard base plate were loosely placed on and this allowed for reduction. This is how I sent my height for cementing of the stem. I then placed a cement stopper distally in the humerus to appropriate length. I then had the nursing surgical services director prepare the antibiotic 1 pack of antibiotic bone cement on the back table. I had an Biomet size 8 mini stem was opened and placed onto the puller out. The canal was then thoroughly irrigated of all debris. I then cement was then antibiotic cement was then placed into the canal to fully fill the canal. The 8 mini stem was then placed in 30 degrees of retrotorsion. It was held there until the cement had dried. I then proceeded with trialing. I started with standard baseplate and a standard tray. This was quite loose. I then incrementally, trialed up to a + 5 tray and + 3 poly. This had an excellent fit. Tension was very good. She had minimal shock. No impingement was noted. She had good range of motion. I made the decision to go forward with a +5 tray and a +3 poly combination. I had the phone representative then opened that on the back table. The poly was impacted into the tray and then the tray was impacted on the Elaine taper of the stem. The shoulder was then reduced. Again, it was taken through full motion. There was no impingement noted. The shoulder was stable. I then thoroughly irrigated the wound with sterile saline solution with antibiotic added. The deep drain was then placed deep to the deltoid and pectoralis major. This was brought out superiorly away from the incision. I then placed vancomycin powder within the wound. The deltopectoral interval was then closed with interrupted 0-Vicryl suture. Prior to closure, I did palpate the axillary nerve, which was intact. I then closed the deltopectoral interval. Again, the wound was thoroughly irrigated with antibiotic-impregnated saline, and a second level of vancomycin powder was then placed into the wound. Subcutaneous tissue was closed with 2-0 Vicryl interrupted suture and the skin was closed with a running 3-0 Quill suture. Dermabond was applied to the incision. Sterile compressive dressings were then applied. The patient's right upper extremity was placed into a standard sling. All sponge and needle counts were deemed correct prior to closure. The patient tolerated the procedure without apparent complication. She was transferred to recovery room in stable condition. Of note, I did remove the tuberosity fragments as the greater tuberosity had very significant comminution noted about it. I felt as if the capacity of that of the greater tuberosity to heal to the lesser tuberosity into the shaft of the humerus was very low probability so we did remove those prior to closure. Components were a Biomet comprehensive reverse total shoulder arthroplasty with 8 mini stem, a +5 tray and a +3 polyethylene, mini base plate and a 36 mm glenosphere.
[2016-05-11] MEDS: CARBIDOPA-LEVODOPA 25-100 MG 1 EACH TAB PO SCH ×2 (16:36→21:08)
[2016-05-11] MEDS: DULoxetine HCL 20 MG CAPSULE.DR PO SCH (16:36)
[2016-05-11] MEDS: MELOXICAM 7.5 MG TAB PO SCH (21:08)
--- NOTE | 2016-05-11 23:34 | CONS ---
DATE OF CONSULTATION: 05/11/2016 REASON FOR CONSULTATION: Advice regarding Parkinson's and other multiple medical issues requested by Dr. Clemons. HISTORY OF PRESENT ILLNESS: This 70 -year-old woman with past medical history of Parkinson's, history of hysterectomy, history of colonoscopy, history of anxiety and depression, being followed by Dr. Susan Villalobos in the outpatient setting apparently had a fall and subsequently had right humerus fracture-dislocation. Patient underwent right reverse total shoulder arthroplasty with Dr. Clemons. There is no history of fever, rigors or chills. No history of headache, loss of consciousness or seizures, chest pain, hematochezia or melena at this time. PAST MEDICAL HISTORY: Past medical history of Parkinson's. History of anxiety, depression, history of colonoscopy, hysterectomy. Medications prior to admission include: 1. Mobic 7. 5 mg b.i.d. 2. Emigrant 7.5 mg p.o. q6h p.r.n. 3. Duloxetine 20 mg daily. 4. Sinemet one p.o. t.i.d. ALLERGIES: GABAPENTIN. FAMILY HISTORY: History of alcohol in the family. SOCIAL HISTORY: Occasional alcohol intake. Otherwise, previous history of smoking. REVIEW OF SYSTEMS: ENT: No diminishing hearing. Diminished vision. CARDIOVASCULAR: No angina or palpitations. RESPIRATORY: No cough, hemoptysis. GI: No nausea. : No dysuria. Nervous system: As mentioned earlier. ALLERGY/IMMUNOLOGY: No asthma or hayfever. MUSCULOSKELETAL: As mentioned earlier. HEMATOLOGY/ONCOLOGY: No history of anemia. ENDOCRINE: No history of diabetes mellitus or hypothyroidism. CONSTITUTIONAL: As mentioned earlier. DERMATOLOGY: Negative. PSYCHIATRY: As mentioned earlier. PHYSICAL EXAMINATION: Alert and oriented times three. Pulse 101, blood pressure is 96/54, respiratory rate 16, temperature 98.4, pulse ox 100% on room air. HEENT: Conjunctivae normal. Oral mucosa moist. NECK: No jugular venous distention. No carotid bruit. No lymph node enlargement. CARDIOVASCULAR: S1, S2 muffled. No S3, no S4. RESPIRATORY: Breath sounds diminished at the bases. No rhonchi. No crackles. ABDOMEN: Soft, nontender. No mass palpable. Legs: No edema, no swelling. Nervous system: Higher function as mentioned earlier. Moves all 4 limbs. No focal motor or sensory deficits. LYMPHATICS: No lymph nodes palpable in the neck, axillae or groin. Examination of the right shoulder LABS: WBC 9.7, hemoglobin is 10.3. Otherwise, glucose 111. ASSESSMENT: 1. Status post right shoulder arthroplasty for right humerus fracture-dislocation. 2. Anemia, present on admission, normocytic probably anemia of chronic disease. 3. Increased random blood sugar. 4. History of Parkinson's. 5. History of partial hysterectomy. 6. History of gait dysfunction. 7. History of anxiety, depression, not otherwise specified. 8. Remote history nicotine dependence. RECOMMENDATIONS AND DISCUSSION: In this 70-year-old woman who presented with multiple complex medical issues. We will monitor the patient closely. Continue with current medications. Continue symptomatic treatment. I recommend resuming the home medications, DVT prophylaxis, incentive spirometry. Pain management. Otherwise, baseline labs may be repeated. Follow the patient closely with you. Patient had some urinary retention and other issues last night. Seems to be improving at this time. UA is unremarkable as well. We will follow the patient closely. Thank you Dr. Clemons for letting us participate in the care of this patient. LALA
[2016-05-12] MEDS: HYDROcodone/APAP 7.5-325MG 1 EACH TAB PO PRN ×2 (01:12→12:30)
[2016-05-12] MEDS: LACTATED RINGERS 1,000 ML IV SCH ×3 (02:40→17:22)
[2016-05-12] MEDS: CARBIDOPA-LEVODOPA 25-100 MG 1 EACH TAB PO SCH ×3 (09:11→21:03)
[2016-05-12] MEDS: MELOXICAM 7.5 MG TAB PO SCH ×2 (09:11→21:03)
[2016-05-12] MEDS: DOXYCYCLINE 50 MG CAP PO SCH ×2 (09:11→21:03)
[2016-05-12] MEDS: DULoxetine HCL 20 MG CAPSULE.DR PO SCH (09:11)
--- NOTE | 2016-05-12 11:37 | P.PN ---
Progress Note - Text Patient is very pleasant 70-year-old female who is seen and examined at bedside for follow-up evaluation after undergoing a right reverse total shoulder arthroplasty following a right proximal humerus fracture performed by Dr. Tomas Clemons and Dr. Félix Cui 05/10/2016. Postsurgically, she continued to have some pain at the surgical site. She states she feels she is doing better this morning. She is able to sit in a bedside chair without significant difficulty. The urinalysis performed yesterday was negative for urinary tract infection. Following straight catheterization, she's been urinating without significant difficulty. She states she has urinated approximately 4 times since the straight catheterization without any difficulty. She feels she is improving at this time and may be able to be discharged home versus rehabilitation. She states her would be able to help her at home. Physical Exam: Patient is awake, alert, and oriented 3 Vital signs stable Good chest excursion with deep inspiration and expiration Abdomen soft nontender No signs or symptoms of DVT; no calf pain Dressing over the right shoulder remains clean, dry, and intact Incision is clean, dry, and intact; no active drainage or obvious signs of infection at the surgical site Some bruising around the surgical site Sling intact right upper extremity Patient able to wiggle all fingers and thumb and perform wrist flexion and extension of the right upper extremity has significant difficulty Neurovascularly intact right upper extremity Range of motion of the right elbow without difficulty Assessment: Status post day 2 right reverse total shoulder arthroplasty for comminuted displaced proximal humeral fracture Parkinson's disease Plan: 1. Patient should continue to remain nonweightbearing on the right upper extremity; sling should remain intact at all times 2. Continue pain control with oral and IV pain medications 3. Continue to increase patient's mobilization with therapy 4. We will continue to follow patient closely 5. Patient has been progressing well postsurgically; if she continues to improve, we'll plan for discharge home tomorrow, 05/13/2016
--- NOTE | 2016-05-12 12:51 | PN ---
DATE OF SERVICE: 05/12/2016 Cayla is postoperative day number two status post right shoulder reverse total shoulder arthroplasty for a comminuted proximal humerus fracture-dislocation. She is resting comfortably in bed, her pain is well controlled. When I saw her today, she is sitting up at the bedside in a chair resting fairly comfortably. PHYSICAL EXAMINATION: She is afebrile. Vital signs are stable. She is alert and oriented. Her incision is healing nicely. There is no erythema, fluctuance about the area. There is no drainage from the incision, and it is completely dry. She has an intact extensor pollicis longus, flexor pollicis longus extensor indicis, hand intrinsics and FDP to the small finger. She has an intact radial, median, and ulnar and axillary nerve sensation and she has 2+ radial pulse. IMPRESSION: Postoperative day number two status post right shoulder reverse total shoulder arthroplasty for comminuted proximal humerus fracture-dislocation. RECOMMENDATIONS: Cayla is doing quite well in the early postoperative period, we will have her continue to rest. Would not prescribe any physical therapy for the right upper extremity. She will rest it in a sling. The sling can be fit loosely when she is sitting around for comfort. We will get her up and ambulating with physical therapy today. She will continue on doxycycline and then also for antibiotic prophylaxis as well as DVT prophylaxis as well. Plan to see Cayla back in 10 days in the office for follow-up. She will continue to utilize the sling in the interim. All of her questions were answered to her satisfaction.
--- NOTE | 2016-05-12 18:10 | PN ---
DATE OF SERVICE: 05/12/2016 This 70-year-old woman who was admitted after shoulder surgery is being closely monitored. No chest pain. No palpitations. No fever. On exam, alert and oriented times three. Pulse 93, blood pressure 115/73, respiratory rate 16. temperature 97.7, pulse ox 97% on room air. HEENT: Conjunctivae normal. NECK: No jugular venous distention. CARDIOVASCULAR: S1, S2 muffled. RESPIRATORY: Breath sounds diminished at the bases. No rhonchi. No crackles. ABDOMEN: Soft, nontender. LEGS: No edema. No swelling. CENTRAL NERVOUS SYSTEM: No focal deficits. Right shoulder status post surgery arthroplasty. LABS: Hemoglobin 10.3, total protein 6.1. UA noted. ASSESSMENT: 1. Status post right shoulder arthroplasty for right humerus fracture-dislocation. 2. Anemia present on admission normocytic probably anemia of chronic disease. 3. Increased random blood sugar. 4. History of Parkinson's. 5. History of partial hysterectomy. 6. History of gait dysfunction. 7. History of anxiety, depression, not otherwise specified. 8. Remote history of nicotine dependence. RECOMMENDATIONS AND DISCUSSION: Recommend to continue the current medications, continue with monitoring, symptomatic treatment. Otherwise, DVT prophylaxis, incentive spirometry. PT, OT evaluation. Possible ECF rehab. Further recommendations to follow.
[2016-05-13] MEDS: HYDROcodone/APAP 7.5-325MG 1 EACH TAB PO PRN (06:52)
[2016-05-13 08:08] VITALS: BP 107/53; PULSE 91; TEMP 99.1
[2016-05-13] MEDS: DOXYCYCLINE 50 MG CAP PO SCH (09:29)
[2016-05-13] MEDS: CARBIDOPA-LEVODOPA 25-100 MG 1 EACH TAB PO SCH (09:30)
[2016-05-13] MEDS: MELOXICAM 7.5 MG TAB PO SCH (09:30)
[2016-05-13] MEDS: DULoxetine HCL 20 MG CAPSULE.DR PO SCH (09:31)
[2016-05-13] MEDS: LACTATED RINGERS 1,000 ML IV SCH (09:32)
--- NOTE | 2016-05-13 11:56 | P.PN ---
Subjective Principal diagnosis: S/P reverse right total shoulder Patient is a pleasant 62-year-old female seen at bedside today. She is status post reverse right total shoulder arthroplasty as result of a proximal humerus fracture that she suffered on 05/10/2016. The procedure was performed by Dr. Clemons. She has no new complaints today. Her pain is controlled. She is pending acceptance for extended care facility placement. She denies numbness or tingling that is new. She denies calf pain. Review of systems negative for fever, chills, chest pain, shortness breath, nausea, vomiting, dizziness or other. Burning past medical history is positive for Parkinson's. Objective - Vital Signs Vital signs: Vital Signs Temp 99.1 F 05/13/16 08:08 Pulse 91 05/13/16 08:08 Resp 16 05/13/16 08:08 BP 107/53 05/13/16 08:08 Pulse Ox 95 05/13/16 08:08 Intake & Output 05/12/16 05/13/16 05/13/16 18:59 06:59 18:59 Intake Total 236 360 Output Total 500 Balance -264 360 Intake: Oral 236 360 Output: Urine 500 Other: Voiding Method Bedside Commode Bedside Commode # Voids 3 1 - Exam Inspection of the right upper extremity surgical wound is benign. There is no active bleeding, dehiscence or drainage. Sensation to light touch is intact throughout the right upper extremity. Active motor is intact at the elbow, wrist, hand and fingers. 2+ radial pulses present and less than 2 second cap refill is present. - Constitutional General appearance: Present: no acute distress - Psychiatric Psychiatric: Present: A&O x's 3, appropriate affect, intact judgment & insight - Labs CBC & Chem 7: 05/10/16 17:22 05/10/16 17:22 Assessment and Plan (1) Proximal humeral fracture Narrative/Plan: She'll continue with routine postop orthopedic protocol including pain management, wound care, DVT prophylaxis and medical management. She's pending placement for rehab. She is to be nonweightbearing right upper extremity. She may shower in 1 day. She will continue antibiotics where a prescription has been provided as well as pain medicine to take as directed with precautions given. Status: Acute Time with Patient: Less than 30
--- NOTE | 2016-05-13 14:06 | P.DS ---
Providers Date of admission: 05/10/16 15:32 Expected date of discharge: 05/13/16 Attending physician: Tomas Clemons Consults: 05/10/16 15:42 Consult Physician Routine Consulting Provider: Chacho Lopez Consult Reason/Comments: post op medical management Do you want consulting provider notified?: Yes Primary care physician: Stated None - Discharge Diagnosis(es) (1) Proximal humeral fracture Patient was admitted to the OR on 05/10/16 to undergo reverse right total shoulder arthroplasty per Dr. Clemons. She had fallen earlier in the day which resulted in a displaced comminuted proximal humerus fracture that required surgical intervention. She underwent the above procedure which she tolerated well without complication. Her post operative course has remained without complication. On day of discharge she desires transfer to an ECF. She has parkinsons and is nonweightbearing with her right upper extremity. Her wound is benign, VSS, afebrile, labs WNL, tolerating PO meds and diet, voiding, passing flatus, neurovascular status is intact with right upper extremity, abdomen is SNT, calf is SNT and denying new complaints. [place] of systems is negative for fever, chills, chest pain, shortness of breath, numbness, tingling, calf pain, abdominal pain, dizziness, headaches, slurred speech or other. Current Visit: Yes Status: Acute Priority: Medium Patient Condition at Discharge: Good Plan - Discharge Summary New Discharge Prescriptions: Doxycycline Hyclate 100 mg PO BID #10 tab HYDROcodone/APAP 5-325MG [[place] 5-325] 1 tab PO Q4HR PRN #60 tab PRN Reason: Pain Discharge Medication List Carbidopa-Levodopa 25-100 mg [Sinemet 25-100 mg] 1 tab PO TID 04/01/16 [History] Meloxicam [Mobic] 7.5 mg PO BID 04/01/16 [History] DULoxetine HCL 20 mg PO DAILY 05/10/16 [History] Hydrocodone/Acetaminophen [[place] 5-325] 1 tab PO Q6HR PRN #20 tab 05/10/16 [Rx] Doxycycline Hyclate 100 mg PO BID #10 tab 05/13/16 [Rx] HYDROcodone/APAP 5-325MG [[place] 5-325] 1 tab PO Q4HR PRN #60 tab 05/13/16 [Rx] Follow up Appointment(s)/Referral(s): Susan Villalobos MD [REFERRING] - 05/20/16 9:30 am Tomas Clemons MD [STAFF PHYSICIAN] - 2 Weeks Ambulatory/Diagnostic Orders: Complete Blood Count w/diff [LAB.AMB] Time Frame: 3 Days, Location: Determined By Patient Activity/Diet/Wound Care/Special Instructions: NWB to right arm Maintain Sling Regular diet Daily dressing changes. Keep incision clean, dry, and intact. Take meds as directed F/U with Dr. Clemons in office May shower in 24 hrs. Discharge Disposition: TRANSFER TO SNF/ECF
--- NOTE | 2016-05-13 20:59 | PN ---
DATE OF SERVICE: 05/13/2016 This 70-year-old woman who was admitted after right shoulder arthroplasty improving significantly. No chest pain. No palpitations. No fever. On exam, alert and oriented times three. Pulse 93. Blood pressure 130/66, respiratory rate 16. Temperature 98.4, pulse ox 97% on room air. HEENT: Conjunctivae normal. NECK: No jugular venous distention. CARDIOVASCULAR: S1, S2 muffled. RESPIRATORY: Breath sounds diminished at the bases. No rhonchi. No crackles. ABDOMEN: Soft, nontender. LEGS: No edema. CENTRAL NERVOUS SYSTEM: No focal deficits. Left shoulder status post surgery. LABS: Hemoglobin 10.3, glucose 111. UA noted. ASSESSMENT: 1. Status post right shoulder arthroplasty for right humerus fracture-dislocation. 2. Anemia, present on admission, normocytic, probably anemia of chronic disease. 3. Increased of random blood sugar. 4. History of Parkinson's. 5. History of partial hysterectomy. 6. History of gait dysfunction. 7. History of anxiety, depression, not otherwise specified. 8. Remote history of nicotine dependence. RECOMMENDATIONS AND DISCUSSION: Recommend to continue current medications. Continue symptomatic treatment. Resume the home medications. Closely follow with the primary physician in the outpatient setting, Dr. Susan Villalobos. Otherwise, the rest of the recommendations per orthopedic surgery.
== END 2016-05-13 16:08 | DRG 483 ==
LOC: 3SUR 15:32
PROVIDERS: ADMIT Orthopaedic Surgery Sports Medicine; ATTEND Orthopaedic Surgery Sports Medicine
PROC: 0RRJ00Z Replacement of Right Shoulder Joint with Reverse Ball and Socket Synthetic Substitute, Open Approach (ICD-10-PCS; principal; 2016-05-10 18:00)
DX: S42.291A Other displaced fracture of upper end of right humerus, initial encounter for closed fracture (principal); G20 Parkinson's disease; D63.8 Anemia in other chronic diseases classified elsewhere; Z90.710 Acquired absence of both cervix and uterus; R33.9 Retention of urine, unspecified; Z79.1 Long term (current) use of non-steroidal anti-inflammatories (NSAID); Z79.899 Other long term (current) drug therapy; Z86.59 Personal history of other mental and behavioral disorders; Y92.003 Bedroom of unspecified non-institutional (private) residence as the place of occurrence of the external cause; W06.XXXA Fall from bed, initial encounter
CPT/HCPCS: 25505; 71010; 80053; 81003; 85025; 88305; 88311; 96361; 96374; 96375; 99284

== ENCOUNTER 2016-05-28 17:17 | Emergency (ER) | payer MEDICARE ==
[2016-05-28 17:23] VITALS: RESP 18
--- NOTE | 2016-05-28 17:30 | ED ---
Fall HPI - General Chief Complaint: Fall Stated Complaint: FALL Time Seen by Provider: 05/28/16 17:18 Source: patient, EMS, RN notes reviewed Mode of arrival: EMS - History of Present Illness Initial Comments: 70-year-old female presents to the emergency Department chief complaint of fall. Patient states she was in the bathroom trying to turn when she lost her balance. Patient states she fell backwards. Patient states she hit her head as well as landing on her right side to her right shoulder and her right knee pain. Patient states she is updated on her tetanus. Patient denies any loss of consciousness. Patient states that she has no pain at this time. Patient states that she stands she has some pain to the right knee. Patient states that there is no other injuries from the incident. Patient states there is no chest pain no shortness of breath prior to the fall. Patient denies any dizziness or lightheadedness.Patient denies any recent fever, chills, shortness of breath, chest pain, back pain, abdominal pain, nausea vomiting, numbness or tingling, dysuria or hematuria, constipation or diarrhea, headaches or visual changes, or any other current symptoms. - Related Data Home Medications Medication Instructions Recorded Confirmed Carbidopa-Levodopa 25-100 mg 1 tab PO TID 04/01/16 05/28/16 [Sinemet 25-100 mg] Meloxicam [Mobic] 7.5 mg PO BID 04/01/16 05/28/16 DULoxetine HCL 20 mg PO DAILY 05/10/16 05/28/16 Acetaminophen Tab [Tylenol Tab] 650 mg PO Q4H PRN 05/28/16 05/28/16 Docusate Sodium [Dok] 100 mg PO BID 05/28/16 05/28/16 Ferrous Sulfate [Feosol] 325 mg PO BID 05/28/16 05/28/16 Lactulose 10 gm PO BID PRN 05/28/16 05/28/16 Previous Rx's Medication Instructions Recorded Doxycycline Hyclate 100 mg PO BID #10 tab 05/13/16 HYDROcodone/APAP 5-325MG [[place] 1 tab PO Q4HR PRN #60 tab 05/13/16 5-325] Allergies Allergy/AdvReac Type Severity Reaction Status Date / Time gabapentin [From Neurontin] AdvReac Severe FALLING Verified 05/28/16 18:30 Review of Systems ROS Statement: Those systems with pertinent positive or pertinent negative responses have been documented in the HPI. ROS Other: All systems not noted in ROS Statement are negative. Past Medical History Past Medical History: Neurologic Disorder Additional Past Medical History / Comment(s): Hx Parkinsons. History of Any Multi-Drug Resistant Organisms: None Reported Past Surgical History: Hysterectomy Additional Past Surgical History / Comment(s): Right shoulder surgery Past Anesthesia/Blood Transfusion Reactions: No Reported Reaction Additional Past Anesthesia/Blood Transfusion Reaction / Comment(s): ponv after hysterectomy. pt lives with spouse in ranch style home that has 3 steps into home. uses cane/walker as needed. no outside services. used to work in billing dept Past Psychological History: Anxiety, Depression Additional Psychological History / Comment(s): occ depresion d/t to med issues, but no thought of wanting to harm self. Smoking Status: Former smoker Past Alcohol Use History: Rare Additional Past Alcohol Use History / Comment(s): smoked occ in her 20's Past Drug Use History: None Reported - Past Family History Mother Family Medical History: No Reported History Additional Family Medical History / Comment(s): alcholic Father Family Medical History: No Reported History Additional Family Medical History / Comment(s): alcoholic General Exam General appearance: alert, in no apparent distress Head exam: Present: other (Patient does appear to have a 3 mL laceration to the posterior aspect with a small hematoma.) Eye exam: Present: normal appearance, PERRL, EOMI. Absent: scleral icterus, conjunctival injection, periorbital swelling ENT exam: Present: normal exam, mucous membranes moist Neck exam: Present: normal inspection. Absent: tenderness, meningismus, lymphadenopathy Respiratory exam: Present: normal lung sounds bilaterally. Absent: respiratory distress, wheezes, rales, rhonchi, stridor Cardiovascular Exam: Present: regular rate, normal rhythm, normal heart sounds. Absent: systolic murmur, diastolic murmur, rubs, gallop, clicks Right Shoulder Exam: Present: normal inspection. Absent: full ROM (Limited however patient did previously have surgery), tenderness, swelling Elbow exam: Present: full ROM. Absent: tenderness Forearm Wrist exam: Present: normal inspection, full ROM. Absent: tenderness, swelling Hand Wrist exam: Present: normal inspection, full ROM. Absent: tenderness, swelling Right Hip exam: Present: normal inspection, full ROM. Absent: tenderness Upper Leg exam: Present: normal inspection, full ROM. Absent: tenderness Knee exam: Present: full ROM, tenderness (Over the anterior aspect), abrasion ( Urine aspect), ecchymosis (Anterior aspect) Lower Leg exam: Present: normal inspection, full ROM. Absent: tenderness, swelling Ankle exam: Present: normal inspection, full ROM. Absent: tenderness, swelling Back exam: Present: normal inspection Neurological exam: Present: alert, oriented X3, CN II-XII intact. Absent: motor sensory deficit Psychiatric exam: Present: normal affect, normal mood Skin exam: Present: warm, dry, intact, normal color. Absent: rash Course Vital Signs 05/28/16 17:18 Temperature 97.7 F Pulse Rate 100 Respiratory 18 Rate Blood Pressure 138/63 O2 Sat by Pulse 98 Oximetry Procedures - Procedures Initial comment: The skin was anesthetized with 1% lidocaine without epinephrine. The laceration was then cleansed with Betadine and irrigated with normal saline. The wound was inspected, and there was no evidence of injury to deep structures. No foreign body was noted in the wound. A total of 4 skin camacho were placed with good approximation. Medical Decision Making - Medical Decision Making 70-year-old female presents to the emergency department with a chief complaint of fall. At this time images are reviewed and negative. We discussed care. We discussed staple care. We discussed follow up on head injury outcomes and what could happen and when to return. Family is in agreement with the plan and all questions have been answered. Patient will be discharged home at this time. Disposition Clinical Impression: Fall, Occipital scalp laceration, Abrasion, right knee, initial encounter Disposition: HOME SELF-CARE Condition: Stable Instructions: Fall Prevention for Older Adults (ED), Staple Care (ED), Abrasion (ED) Additional Instructions: Please use medication as discussed. Please follow up with family doctor if symptoms have not improved over the next two days. Please return to the emergency room if your symptoms increase or worsen or for any other concerns. Referrals: Johan Rangel MD [Primary Care Provider] - 1-2 days Time of Disposition: 19:35
--- NOTE | 2016-05-28 19:27 | XR ---
EXAMINATION TYPE: XR knee complete RT DATE OF EXAM: 05/28/2016 6:38 PM COMPARISON: NONE HISTORY: Pain after trauma TECHNIQUE: 3 views FINDINGS: Bones and joints and soft tissues are unremarkable for acute findings. IMPRESSION: No acute process.
--- NOTE | 2016-05-28 19:29 | XR ---
EXAMINATION TYPE: XR shoulder complete RT DATE OF EXAM: 05/28/2016 6:39 PM COMPARISON: May 10, 2016 HISTORY: Pain TECHNIQUE: 4 views FINDINGS: The right shoulder replacement appears to have the same anatomic positioning and alignment as May 10, 2016 study. The hardware appears intact. The bones and joints are negative for fracture or malalignment. No incidental findings. IMPRESSION: Definite acute process.
--- NOTE | 2016-05-28 19:31 | CT ---
EXAMINATION TYPE: CT brain davian wo con DATE OF EXAM: 05/28/2016 6:59 PM COMPARISON: NONE HISTORY: fall CT DLP: 1420.7 mGycm Automated exposure control for dose reduction was used. TECHNIQUE: CT scan of the head and cervical spine are performed without contrast. FINDINGS: There is no acute intracranial hemorrhage, mass effect, or midline shift identified. The ventricles and sulci are within normal limits in size. The globes are intact and the visualized sin uses are clear. Cervical spine is visualized in its entirety from C1 through upper thoracic levels and demonstrates s atisfactory alignment without evidence of acute fracture or dislocation. Prevertebral soft tissue ap pears within normal limits. The C1-C2 articulation is unremarkable. IMPRESSION: 1. There is no acute fracture or dislocation evident in the cervical spine. 2. No acute intracranial hemorrhage, mass effect, or midline shift is seen.
[2016-05-28 19:37] VITALS: BP 143/65; PULSE 95; TEMP 98.6
[2016-05-28] MEDS ORDERED: ACETAMINOPHEN TAB 500 MG TAB PO STA (19:37)
== END 2016-05-28 19:48 | disposition home or self-care (01) ==
LOC: EC 17:17
DX: S01.01XA Laceration without foreign body of scalp, initial encounter (principal); S80.211A Abrasion, right knee, initial encounter; M25.511 Pain in right shoulder; G20 Parkinson's disease; F32.9 Major depressive disorder, single episode, unspecified; F41.9 Anxiety disorder, unspecified; Z87.891 Personal history of nicotine dependence; Z79.1 Long term (current) use of non-steroidal anti-inflammatories (NSAID); Z79.899 Other long term (current) drug therapy; Z88.8 Allergy status to other drugs, medicaments and biological substances; W18.00XA Striking against unspecified object with subsequent fall, initial encounter; Y92.009 Unspecified place in unspecified non-institutional (private) residence as the place of occurrence of the external cause
CPT/HCPCS: 12001; 70450; 72125; 99284

== ENCOUNTER → 2016-09-27 | Outpatient (CLI) | payer MEDICARE ==
--- NOTE | 2016-10-01 07:41 | MM ---
Reason for exam: screening (asymptomatic). Last mammogram was performed 2 years and 2 months ago. History: Patient is postmenopausal. Took hormonal contraceptives for 1 year beginning at age 22. Took estrogen for 2 years beginning at age 52. Physical Findings: A clinical breast exam by your physician is recommended on an annual basis and results should be correlated with mammographic findings. MG Screening Mammo w CAD Bilateral CC and MLO view(s) were taken. Prior study comparison: August 10, 2014, bilateral MG screening mammo w CAD. August 03, 2013, bilateral MG screening mammo w CAD. There are scattered fibroglandular densities. No suspicious abnormality. No significant changes when compared with prior studies. ASSESSMENT: Negative, BI-RAD 1 RECOMMENDATION: Routine screening mammogram of both breasts in 1 year.
== END | disposition home or self-care (01) ==
LOC: RADMAMWWP 11:31
PROVIDERS: ATTEND Family Medicine
DX: Z12.31 Encounter for screening mammogram for malignant neoplasm of breast (principal)

== ENCOUNTER 2019-02-12 15:50 | Emergency (ER) | payer MEDICARE ==
[2019-02-12 16:07] VITALS: TEMP 97.1
[2019-02-12] MEDS ORDERED: MORPHINE SULFATE 2 MG/ML SYRINGE IM STA (16:20)
--- NOTE | 2019-02-12 16:40 | ED ---
Upper Extremity HPI - General Chief Complaint: Extremity Injury, Upper Stated Complaint: Fall-Shoulder Injury Time Seen by Provider: 02/12/19 16:00 Source: patient, RN notes reviewed, old records reviewed Mode of arrival: ambulatory Limitations: no limitations - History of Present Illness Initial Comments: Patient is a 73-year-old female with a trip and fall injury. She reports that she fell on her left shoulder. Patient states that her was out of the home and she called EMS. Patient reports that she occasionally walks with a walker or cane. She reports that she tripped over her feet. Patient denies any head injury or any other complaints of pain besides left shoulder. Patient has a history of Parkinson's disorder. She is [id number]. She reports that she had her right shoulder done by by Dr. Clemons in 2017. - Related Data Home Medications Medication Instructions Recorded Confirmed Carbidopa-Levodopa 25-100 mg 1 tab PO TID 04/01/16 05/28/16 [Sinemet 25-100 mg] Meloxicam [Mobic] 7.5 mg PO BID 04/01/16 05/28/16 DULoxetine HCL 20 mg PO DAILY 05/10/16 05/28/16 Acetaminophen Tab [Tylenol Tab] 650 mg PO Q4H PRN 05/28/16 05/28/16 Docusate Sodium [Dok] 100 mg PO BID 05/28/16 05/28/16 Ferrous Sulfate [Feosol] 325 mg PO BID 05/28/16 05/28/16 Lactulose 10 gm PO BID PRN 05/28/16 05/28/16 Previous Rx's Medication Instructions Recorded Doxycycline Hyclate 100 mg PO BID #10 tab 05/13/16 HYDROcodone/APAP 5-325MG [[place] 1 tab PO Q4HR PRN #60 tab 05/13/16 5-325] HYDROcodone/APAP 5-325MG [[place] 1 tab PO Q4HR PRN 3 Days #18 tab 02/12/19 5-325] Ondansetron Odt [Zofran Odt] 4 mg PO Q8HR PRN #12 tab 02/12/19 Allergies Allergy/AdvReac Type Severity Reaction Status Date / Time gabapentin [From Neurontin] AdvReac Severe FALLING Verified 05/28/16 18:30 Review of Systems ROS Statement: Those systems with pertinent positive or pertinent negative responses have been documented in the HPI. ROS Other: All systems not noted in ROS Statement are negative. Past Medical History Past Medical History: Neurologic Disorder Additional Past Medical History / Comment(s): Hx Parkinsons. History of Any Multi-Drug Resistant Organisms: None Reported Past Surgical History: Hysterectomy Additional Past Surgical History / Comment(s): Right shoulder surgery Past Anesthesia/Blood Transfusion Reactions: No Reported Reaction Additional Past Anesthesia/Blood Transfusion Reaction / Comment(s): ponv after hysterectomy. pt lives with spouse in ranch style home that has 3 steps into home. uses cane/walker as needed. no outside services. used to work in billing dept Past Psychological History: Anxiety, Depression Smoking Status: Former smoker Past Alcohol Use History: Rare Past Drug Use History: None Reported - Past Family History Mother Family Medical History: No Reported History Additional Family Medical History / Comment(s): alcholic Father Family Medical History: No Reported History Additional Family Medical History / Comment(s): alcoholic General Exam - General Exam Comments Initial Comments: Pleasant 73-year-old female. Alert and oriented. Limitations: no limitations General appearance: alert, in no apparent distress Head exam: Present: atraumatic, normocephalic, normal inspection Eye exam: Present: normal appearance, PERRL, EOMI. Absent: scleral icterus, conjunctival injection, periorbital swelling ENT exam: Present: normal exam, mucous membranes moist Neck exam: Present: normal inspection. Absent: tenderness, meningismus, lymphadenopathy Respiratory exam: Present: normal lung sounds bilaterally. Absent: respiratory distress, wheezes, rales, rhonchi, stridor Cardiovascular Exam: Present: regular rate, normal rhythm, normal heart sounds. Absent: systolic murmur, diastolic murmur, rubs, gallop, clicks GI/Abdominal exam: Present: soft, normal bowel sounds. Absent: distended, tenderness, guarding, rebound, rigid Extremities exam: Present: normal inspection, full ROM, normal capillary refill. Absent: tenderness, pedal edema, joint swelling, calf tenderness Left Shoulder Exam: Present: tenderness (Over humeral head). Absent: normal inspection, full ROM Upper Arm exam: Present: normal inspection, full ROM Elbow exam: Present: normal inspection, full ROM Forearm Wrist exam: Present: normal inspection, full ROM Hand Wrist exam: Present: normal inspection, full ROM Back exam: Present: normal inspection Neurological exam: Present: alert, oriented X3, CN II-XII intact Psychiatric exam: Present: normal affect, normal mood Course Vital Signs 02/12/19 02/12/19 16:03 18:14 Temperature 97.1 F L 97.1 F L Pulse Rate 67 86 Respiratory 18 16 Rate Blood Pressure 233/93 180/70 O2 Sat by Pulse 99 96 Oximetry Procedures - Orthopedic Splinting/Casting Injury #1 Side: left Upper Extremity Injury Location: shoulder Upper Extremity Immobilizer: sling/shoulder immobilizer Medical Decision Making - Medical Decision Making Patient is a 73-year-old female presents today for evaluation for fall, shoulder injury. At this time Patient states x-rays were found to have a left comminuted humeral neck fracture. She is given IM pain medication. Patient has neurovascular intact. Normal sensation and reveal pulse bilaterally. Patient at this time was did have initial concerns for being discharged home she does have Parkinson's disease. Her states that the home is well fitted with a modified back in. At this time patient's case is discussed with Dr. Jara recommend Patient be discharged and follow-up all patiently. We'll discharge the Patient with pain medication and following up with primary care doctor as well. They'll follow up with [facility] on Friday. All questions were answered and return parameters were discussed. I - Radiology Data Radiology results: report reviewed X-ray shows no active cardiopulmonary disease. Normal heart. Patient's left shoulder x-ray shows acute impacted comminuted humeral neck fracture. Disposition Clinical Impression: Comminuted left humeral fracture Disposition: HOME SELF-CARE Condition: Good Instructions (If sedation given, give patient instructions): Proximal Humerus Fracture (ED) Additional Instructions: Patient advised to follow-up with your orthopedic on Friday. Patient should use help with ambulation. Return to emergency department if any alarming signs or symptoms occur. Remain in the sling. Prescriptions: HYDROcodone/APAP 5-325MG [[place] 5-325] 1 tab PO Q4HR PRN 3 Days #18 tab PRN Reason: Pain Ondansetron Odt [Zofran Odt] 4 mg PO Q8HR PRN #12 tab PRN Reason: Nausea Is patient prescribed a controlled substance at d/c from ED?: Yes If prescribed controlled substance>3 days was MAPS reviewed?: Prescribed <3 Days If opioid is for acute pain is fill amount 7 days or less?: Yes If Rx opioid, was Start Talking consent form obtained?: Yes Referrals: Susan Villalobos MD [Primary Care Provider] - 1-2 days Ernie Padilla DO [Medical Doctor] - 1-2 days Tomas Clemons MD [STAFF PHYSICIAN] - 1-2 days Time of Disposition: 18:26
--- NOTE | 2019-02-12 17:08 | XR ---
EXAMINATION TYPE: XR shoulder complete LT DATE OF EXAM: 02/12/2019 COMPARISON: NONE HISTORY: Shoulder pain TECHNIQUE: 3 views FINDINGS: There is impacted displaced humeral neck fracture. There is no dislocation. Displacement is up to 2.5 cm. IMPRESSION: Acute impacted comminuted humeral neck fracture.
--- NOTE | 2019-02-12 17:09 | XR ---
EXAMINATION TYPE: XR chest 1V DATE OF EXAM: 02/12/2019 COMPARISON: 05/10/2016 HISTORY: Preop TECHNIQUE: Single view FINDINGS: There is impacted displaced comminuted left humeral neck fracture. Lungs are clear. Heart i s normal. Thoracic aorta is atheromatous. There is no pleural effusion or pneumothorax. Ribs appear i ntact. There is right shoulder prosthesis. IMPRESSION: No active cardiopulmonary disease. Normal heart.
[2019-02-12 18:16] VITALS: BP 180/70; PULSE 86; RESP 16
[2019-02-12] MEDS ORDERED: ACET/COD 300 MG/30 MG STARTER PACK 6 TAB BTL PO STA (18:30)
== END 2019-02-12 18:48 | disposition home or self-care (01) ==
LOC: EC 15:50
DX: S42.292A Other displaced fracture of upper end of left humerus, initial encounter for closed fracture (principal); G20 Parkinson's disease; F32.9 Major depressive disorder, single episode, unspecified; F41.9 Anxiety disorder, unspecified; Z87.891 Personal history of nicotine dependence; Z88.8 Allergy status to other drugs, medicaments and biological substances; Z79.1 Long term (current) use of non-steroidal anti-inflammatories (NSAID); Z79.899 Other long term (current) drug therapy; Z98.890 Other specified postprocedural states; W01.0XXA Fall on same level from slipping, tripping and stumbling without subsequent striking against object, initial encounter
CPT/HCPCS: 73030; 71045; 99284; 96372; J2270

== ENCOUNTER 2019-07-29 18:12 | Inpatient (IN) | payer MEDICARE ==
[2019-07-29] MEDS ORDERED: MORPHINE SULFATE 4 MG/ML SYRINGE IVP STA (19:07)
--- NOTE | 2019-07-29 19:27 | ED ---
Fall HPI - General Source: patient, EMS Mode of arrival: EMS <Liborio Teague - Last Filed: 07/29/19 20:50> <Bigg Vela - Last Filed: 07/29/19 21:37> - General Chief Complaint: Fall Stated Complaint: fall Time Seen by Provider: 07/29/19 18:20 - History of Present Illness Initial Comments: Patient is a 73-year-old female with history of Parkinson's and frequent falls presenting to the emergency department with a chief complaint of a fall. Her is also present in the room. Patient states several months ago she had a fall and suffered an injury to the left shoulder. States she has had a bony deformity ever since. Patient reports today she was walking to her scale when she lost her footing and fell on the left side of her body. States this occurred several hours prior to arrival. The states the patient has developed some increased pain but the ecchymotic region on the left humeral has been there for several months since the initial incident. Patient also reports a trauma. (Liborio Teague) - Related Data Home Medications Medication Instructions Recorded Confirmed Carbidopa-Levodopa 25-100 mg 1 tab PO TID 04/01/16 05/28/16 [Sinemet 25-100 mg] Meloxicam [Mobic] 7.5 mg PO BID 04/01/16 05/28/16 DULoxetine HCL 20 mg PO DAILY 05/10/16 05/28/16 Acetaminophen Tab [Tylenol Tab] 650 mg PO Q4H PRN 05/28/16 05/28/16 Docusate Sodium [Dok] 100 mg PO BID 05/28/16 05/28/16 Ferrous Sulfate [Feosol] 325 mg PO BID 05/28/16 05/28/16 Lactulose 10 gm PO BID PRN 05/28/16 05/28/16 Previous Rx's Medication Instructions Recorded Doxycycline Hyclate 100 mg PO BID #10 tab 05/13/16 HYDROcodone/APAP 5-325MG [[place] 1 tab PO Q4HR PRN #60 tab 05/13/16 5-325] HYDROcodone/APAP 5-325MG [[place] 1 tab PO Q4HR PRN 3 Days #18 tab 02/12/19 5-325] Ondansetron Odt [Zofran Odt] 4 mg PO Q8HR PRN #12 tab 02/12/19 Allergies Allergy/AdvReac Type Severity Reaction Status Date / Time gabapentin [From Neurontin] AdvReac Severe FALLING Verified 05/28/16 18:30 Review of Systems ROS Other: All systems not noted in ROS Statement are negative. <Liborio Teague - Last Filed: 07/29/19 20:50> ROS Other: All systems not noted in ROS Statement are negative. <Bigg Vela - Last Filed: 07/29/19 21:37> ROS Statement: Those systems with pertinent positive or pertinent negative responses have been documented in the HPI. Past Medical History Past Medical History: Neurologic Disorder Additional Past Medical History / Comment(s): Hx Parkinsons. History of Any Multi-Drug Resistant Organisms: None Reported Past Surgical History: Hysterectomy Additional Past Surgical History / Comment(s): Right shoulder surgery Past Anesthesia/Blood Transfusion Reactions: No Reported Reaction Additional Past Anesthesia/Blood Transfusion Reaction / Comment(s): ponv after hysterectomy. pt lives with spouse in ranch style home that has 3 steps into home. uses cane/walker as needed. no outside services. used to work in billing dept Past Psychological History: Anxiety, Depression Smoking Status: Former smoker Past Alcohol Use History: Rare Past Drug Use History: None Reported - Past Family History Mother Family Medical History: No Reported History Additional Family Medical History / Comment(s): alcholic Father Family Medical History: No Reported History Additional Family Medical History / Comment(s): alcoholic <Liborio Teague - Last Filed: 07/29/19 20:50> General Exam Limitations: no limitations General appearance: alert, in no apparent distress Head exam: Present: atraumatic, normocephalic, normal inspection Eye exam: Present: normal appearance, PERRL, EOMI Pupils: Present: normal accommodation ENT exam: Present: normal exam, normal oropharynx, mucous membranes moist Neck exam: Present: normal inspection, full ROM. Absent: tenderness Respiratory exam: Present: normal lung sounds bilaterally. Absent: respiratory distress, wheezes, rales Cardiovascular Exam: Present: regular rate, normal rhythm, normal heart sounds Extremities exam: Present: tenderness (Tenderness along the lateral anterior aspect of the shoulder. No palpable clavicular bone deformity.), normal capillary refill, other (+2 ulnar radial pulses bilaterally.). Absent: normal inspection (Bony deformity noted on the left shoulder. Ecchymotic region along the humerus.), full ROM (Limited range of motion with abduction above20 degrees.) Back exam: Present: normal inspection, full ROM. Absent: tenderness Neurological exam: Present: alert, oriented X3 Psychiatric exam: Present: normal affect, normal mood Skin exam: Present: warm, dry, intact, normal color <Liborio Teague - Last Filed: 07/29/19 20:50> Course Vital Signs 07/29/19 18:18 Temperature 97.9 F Pulse Rate 85 Respiratory 18 Rate Blood Pressure 123/65 O2 Sat by Pulse 98 Oximetry Medical Decision Making - Lab Data Result diagrams: 07/29/19 19:17 07/29/19 19:17 <Liborio Teague - Last Filed: 07/29/19 20:50> - Lab Data Result diagrams: 07/29/19 19:17 07/29/19 19:17 <Bigg Vela - Last Filed: 07/29/19 21:37> - Medical Decision Making Patient is 73-year-old female presenting to emergency Department with a chief complaint of a fall. Patient has Parkinson's a history of frequent falls. I exam patient has ecchymosis and tenderness along the lateral aspect of the left shoulder. This appears to be old according to the . Patient did have a commuted left shoulder injury which was never repaired from several months ago. Repeat x-ray reveals no significant changes compared to old x-ray. Patient was given some analgesia. No signs of compartment syndrome. Patient neurovascular ly intact. Patient given a sling. Return parameters were thoroughly discussed the patient is understanding and agreeable. CT brain is negative for acute fractures, dislocation or intracranial hemorrhage.. Advised to follow-up with eating disorder specialist. Case discussed with physician. (Liborio Teague) I spoke with Dr. Mclain he agreed to admit the patient for [address] Clemons and medicine. (Bigg Vela) - Lab Data Lab Results 07/29/19 07/29/19 07/29/19 Range/Units 19:17 19:17 19:17 WBC 7.5 (3.8-10.6) k/uL RBC 3.56 L (3.80-5.40) m/uL Hgb 9.7 L (11.4-16.0) gm/dL Hct 31.3 L (34.0-46.0) % MCV 87.7 (80.0-100.0) fL MCH 27.3 (25.0-35.0) pg MCHC 31.1 (31.0-37.0) g/dL RDW 14.4 (11.5-15.5) % Plt Count 268 (150-450) k/uL Neutrophils % 79 % Lymphocytes % 15 % Monocytes % 5 % Eosinophils % 0 % Basophils % 0 % Neutrophils # 5.9 (1.3-7.7) k/uL Lymphocytes # 1.1 (1.0-4.8) k/uL Monocytes # 0.4 (0-1.0) k/uL Eosinophils # 0.0 (0-0.7) k/uL Basophils # 0.0 (0-0.2) k/uL Hypochromasia Slight PT 10.2 (9.0-12.0) sec INR 1.0 (<1.2) APTT 20.2 L (22.0-30.0) sec Sodium 136 L (137-145) mmol/L Potassium 4.3 (3.5-5.1) mmol/L Chloride 109 H (98-107) mmol/L Carbon Dioxide 23 (22-30) mmol/L Anion Gap 4 mmol/L BUN 18 H (7-17) mg/dL Creatinine 0.43 L (0.52-1.04) mg/dL Est GFR (CKD-EPI)AfAm >90 (>60 ml/min/1.73 sqM) Est GFR (CKD-EPI)NonAf >90 (>60 ml/min/1.73 sqM) Glucose 96 (74-99) mg/dL Calcium 8.7 (8.4-10.2) mg/dL Total Bilirubin 0.5 (0.2-1.3) mg/dL AST 18 (14-36) U/L ALT <6 (4-34) U/L Alkaline Phosphatase 131 H (38-126) U/L Total Protein 6.6 (6.3-8.2) g/dL Albumin 3.6 (3.5-5.0) g/dL - EKG Data EKG Comments: Sinus rhythm neck, tripped over 85, [place] 140, QRS 70, QTc 445. (Liborio Teague) Disposition Is patient prescribed a controlled substance at d/c from ED?: No Time of Disposition: 20:54 <Liborio Teague - Last Filed: 07/29/19 20:50> <Bigg Vela - Last Filed: 07/29/19 21:37> Clinical Impression: Fall, Left humeral fracture Disposition: ADMITTED IP TO THIS HOSP Condition: Stable Additional Instructions: Please follow up with an eating disorder specialist. Return to emergency department if symptoms worsen. Referrals: Susan Villalobos MD [Primary Care Provider] - 1-2 days
--- NOTE | 2019-07-29 19:32 | XR ---
PROCEDURE: XR humerus LT - 2V DATE AND TIME: 07/29/2019 7:08 PM CLINICAL INDICATION: pain; fall, trauma, swelling TECHNIQUE: 2V COMPARISON: None FINDINGS: There is a prominently comminuted and anteromedially displaced surgical neck fracture of th e humerus. The acromioclavicular articulation is intact. IMPRESSION: Severely comminuted/displaced humeral neck fracture.
--- NOTE | 2019-07-29 19:35 | XR ---
PROCEDURE: XR shoulder complete LT - 3V DATE AND TIME: 07/29/2019 7:08 PM CLINICAL INDICATION: PHH; fall TECHNIQUE: Department protocol COMPARISON: None FINDINGS: There is a prominently comminuted and anteromedially displaced surgical neck fracture of th e humerus. The humeral shaft is displaced proximally 3 cm medially. The acromioclavicular articulation is intact. IMPRESSION: Severely comminuted/displaced left humeral neck fracture.
[2019-07-29 19:39] LABS: Basophils % (A) 0 %; Eosinophils % (A) 0 %; HCT 31.3 % (34.0-46.0); HGB 9.7 gm/dL (11.4-16.0); Hypochromasia Slight; Lymphocytes # (A) 1.1 k/uL (1.0-4.8); Lymphocytes % (A) 15 %; MCH 27.3 pg (25.0-35.0); MCHC 31.1 g/dL (31.0-37.0); MCV 87.7 fL (80.0-100.0); Mean Platelet Volume 7.3; Monocytes # (A) 0.4 k/uL (0-1.0); Monocytes % (A) 5 %; Neutrophils # (A) 5.9 k/uL (1.3-7.7); Neutrophils % (A) 79 %; Platelet Count 268 k/uL (150-450); RBC 3.56 m/uL (3.80-5.40); RDW 14.4 % (11.5-15.5); WBC 7.5 k/uL (3.8-10.6)
[2019-07-29 19:44] LABS: ALT <6 U/L (4-34); AST 18 U/L (14-36); African American GFR (CKD) >90 (>60 ml/min/1.73 sqM); Albumin 3.6 g/dL (3.5-5.0); Alkaline Phosphatase 131 U/L (38-126); Anion Gap 4 mmol/L; Blood Urea Nitrogen 18 mg/dL (7-17); Calcium 8.7 mg/dL (8.4-10.2); Carbon Dioxide 23 mmol/L (22-30); Chloride 109 mmol/L (98-107); Glucose 96 mg/dL (74-99); Non-African American GFR(CKD) >90 (>60 ml/min/1.73 sqM); Potassium 4.3 mmol/L (3.5-5.1); Sodium 136 mmol/L (137-145); Total Bilirubin 0.5 mg/dL (0.2-1.3); Total Protein 6.6 g/dL (6.3-8.2)
[2019-07-29 19:59] LABS: Prothrombin Time 10.2 sec (9.0-12.0)
[2019-07-29 20:00] LABS: Partial Thromboplastin Time 20.2 sec (22.0-30.0)
--- NOTE | 2019-07-29 20:28 | CT ---
EXAMINATION TYPE: CT brain evaine wo con DATE OF EXAM: 07/29/2019 COMPARISON: 05/28/2016 HISTORY: FALL INJURY PAIN CT DLP: 1247.9 mGycm Automated exposure control for dose reduction was used. TECHNIQUE: CT scan of the head and cervical spine are performed without contrast. FINDINGS: There is no acute intracranial hemorrhage, mass effect, or midline shift identified. The ventricles and sulci are within normal limits in size. The globes are intact and the visualized sin uses are clear. Cervical spine is visualized in its entirety from C1 through upper thoracic levels and demonstrates s atisfactory alignment without evidence of acute fracture or dislocation. Prevertebral soft tissue ap pears within normal limits. The C1-C2 articulation is unremarkable. IMPRESSION: 1. There is no acute fracture or dislocation evident in the cervical spine. 2. No acute intracranial hemorrhage, mass effect, or midline shift is seen.
[2019-07-29] MEDS ORDERED: SODIUM CHLORIDE 0.9% 1,000 ML IV ONE (21:37)
[2019-07-29] MEDS ORDERED: MORPHINE SULFATE 2 MG/ML SYRINGE IVP PRN (21:40)
[2019-07-30] MEDS ORDERED: ACETAMINOPHEN TAB 500 MG TAB PO PRN (10:27)
--- NOTE | 2019-07-30 11:07 | P.GSHP ---
<Pavithra Morton - Last Filed: 07/30/19 10:58> History of Present Illness H&P Date: 07/30/19 Chief Complaint: Fall CHIEF COMPLAINT: Fall HISTORY OF PRESENT ILLNESS: 73-year-old female with a history of Parkinson's disease who presented to the emergency room after sustaining a fall at home. Patient examined this morning at the bedside. She reports she has fallen 4 or 5 times in the past month. She complains of pain to her left arm. PAST MEDICAL HISTORY: See list. PAST SURGICAL HISTORY: See list. SOCIAL HISTORY: No illicit drug use. REVIEW OF SYSTEMS: CONSTITUTIONAL: Denies fever or chills. HEENT: Denies blurred vision, vision changes, or eye pain. Denies hemoptysis CARDIOVASCULAR: Denies chest pain or pressure. RESPIRATORY: No shortness of breath. GASTROINTESTINAL: Refer to HPI for pertinent findings HEMATOLOGIC: Denies bleeding disorders. GENITOURINARY: Denies any blood in urine. SKIN: Denies pruitis. Denies rash. PHYSICAL EXAM: VITAL SIGNS: Reviewed. GENERAL: Well-developed in no acute distress. HEENT: No sclera icterus. Extraocular movements grossly intact. Moist buccal mucosa. Head is atraumatic, normocephalic. ABDOMEN: Soft. Nondistended. Nontender. NEUROLOGIC: Alert and oriented. Cranial nerves II through XII grossly intact. EXTREMITIES: Left arm with sling noted. Ecchymosis noted. LABORATORY DATA: WBC 7.5. Hemoglobin 9.7. Platelet count 268. IMAGING: -Humerus/shoulder x-ray: Comminuted displaced proximal humerus fracture visualized on exam and was present on previous x-ray completed on 02/12/2019. No definite new fracture seen. -CT cervical spine and head: No acute fracture or dislocation of the cervical s pine. No acute intracranial hemorrhage, mass effect, midline shift. ASSESSMENT: 1. Fall 2. History of left proximal humerus fracture 3. History of Parkinson's disease PLAN: -Diet as tolerated -Pain control -Activity as tolerated. Consult PT/OT due to multiple falls -Orthopedics consulted for evaluation. Await recommendations. Nurse practitioner note has been reviewed by physician. Signing provider agrees with the documented findings, assessment, and plan of care. Past Medical History Past Medical History: Neurologic Disorder Additional Past Medical History / Comment(s): Hx Parkinsons. History of Any Multi-Drug Resistant Organisms: None Reported Past Surgical History: Hysterectomy Additional Past Surgical History / Comment(s): Right shoulder surgery Past Anesthesia/Blood Transfusion Reactions: No Reported Reaction Additional Past Anesthesia/Blood Transfusion Reaction / Comment(s): ponv after hysterectomy. pt lives with spouse in ranch style home that has 3 steps into home. uses cane/walker as needed. no outside services. used to work in billing dept Past Psychological History: Anxiety, Depression Additional Psychological History / Comment(s): occ depresion r/t to med issues, but no thought of wanting to harm self. Smoking Status: Never smoker Past Alcohol Use History: Rare Additional Past Alcohol Use History / Comment(s): smoked occ in her 20's Past Drug Use History: None Reported - Past Family History Mother Family Medical History: No Reported History Additional Family Medical History / Comment(s): alcholic Father Family Medical History: No Reported History Additional Family Medical History / Comment(s): alcoholic Medications and Allergies Home Medications Medication Instructions Recorded Confirmed Type Carbidopa-Levodopa 25-100 mg 1 tab PO TID 04/01/16 07/29/19 History [Sinemet 25-100 mg] Meloxicam [Mobic] 7.5 mg PO BID 04/01/16 07/29/19 History Acetaminophen [Tylenol Extra 500 mg PO BID PRN 07/29/19 07/29/19 History Strength] traMADol HCL/ACETAMINOPHEN 1 tab PO Q4HR PRN 3 Days #18 tab 07/30/19 Rx [Ultracet 37.5-325] Allergies Allergy/AdvReac Type Severity Reaction Status Date / Time gabapentin [From Neurontin] AdvReac Severe FALLING Verified 07/29/19 21:53 Surgical - Exam Vital Signs Temp Pulse Resp BP Pulse Ox 97.9 F 85 18 123/65 98 07/29/19 18:18 07/29/19 18:18 07/29/19 18:18 07/29/19 18:18 07/29/19 18:18 Results - Labs 07/29/19 19:17 07/29/19 19:17 Abnormal Lab Results - Last 24 Hours (Table) 07/29/19 07/29/19 07/29/19 Range/Units 19:17 19:17 19:17 RBC 3.56 L (3.80-5.40) m/uL Hgb 9.7 L (11.4-16.0) gm/dL Hct 31.3 L (34.0-46.0) % APTT 20.2 L (22.0-30.0) sec Sodium 136 L (137-145) mmol/L Chloride 109 H (98-107) mmol/L BUN 18 H (7-17) mg/dL Creatinine 0.43 L (0.52-1.04) mg/dL Alkaline Phosphatase 131 H (38-126) U/L Diabetes panel 07/29/19 Range/Units 19:17 Sodium 136 L (137-145) mmol/L Potassium 4.3 (3.5-5.1) mmol/L Chloride 109 H (98-107) mmol/L Carbon Dioxide 23 (22-30) mmol/L BUN 18 H (7-17) mg/dL Creatinine 0.43 L (0.52-1.04) mg/dL Glucose 96 (74-99) mg/dL Calcium 8.7 (8.4-10.2) mg/dL AST 18 (14-36) U/L ALT <6 (4-34) U/L Alkaline Phosphatase 131 H (38-126) U/L Total Protein 6.6 (6.3-8.2) g/dL Albumin 3.6 (3.5-5.0) g/dL Calcium panel 07/29/19 Range/Units 19:17 Calcium 8.7 (8.4-10.2) mg/dL Albumin 3.6 (3.5-5.0) g/dL Pituitary panel 07/29/19 Range/Units 19:17 Sodium 136 L (137-145) mmol/L Potassium 4.3 (3.5-5.1) mmol/L Chloride 109 H (98-107) mmol/L Carbon Dioxide 23 (22-30) mmol/L BUN 18 H (7-17) mg/dL Creatinine 0.43 L (0.52-1.04) mg/dL Glucose 96 (74-99) mg/dL Calcium 8.7 (8.4-10.2) mg/dL Adrenal panel 07/29/19 Range/Units 19:17 Sodium 136 L (137-145) mmol/L Potassium 4.3 (3.5-5.1) mmol/L Chloride 109 H (98-107) mmol/L Carbon Dioxide 23 (22-30) mmol/L BUN 18 H (7-17) mg/dL Creatinine 0.43 L (0.52-1.04) mg/dL Glucose 96 (74-99) mg/dL Calcium 8.7 (8.4-10.2) mg/dL Total Bilirubin 0.5 (0.2-1.3) mg/dL AST 18 (14-36) U/L ALT <6 (4-34) U/L Alkaline Phosphatase 131 H (38-126) U/L Total Protein 6.6 (6.3-8.2) g/dL Albumin 3.6 (3.5-5.0) g/dL <Bunny Villalobos - Last Filed: 07/30/19 18:33> History of Present Illness As above. Patient with history of previous fracture. Seemed to reenter and yesterday with an additional fall. Some bruising left arm. Pulses intact. No surgical intervention per orthopedics. No other injuries identified. We'll sign off. Admitting physician transferred to hospitalist. Surgical - Exam Vital Signs Temp Pulse Resp BP Pulse Ox 97.9 F 85 18 123/65 98 07/29/19 18:18 07/29/19 18:18 07/29/19 18:18 07/29/19 18:18 07/29/19 18:18 Results - Labs 07/29/19 19:17 07/29/19 19:17 Abnormal Lab Results - Last 24 Hours (Table) 07/29/19 07/29/19 07/29/19 Range/Units 19:17 19:17 19:17 RBC 3.56 L (3.80-5.40) m/uL Hgb 9.7 L (11.4-16.0) gm/dL Hct 31.3 L (34.0-46.0) % APTT 20.2 L (22.0-30.0) sec Sodium 136 L (137-145) mmol/L Chloride 109 H (98-107) mmol/L BUN 18 H (7-17) mg/dL Creatinine 0.43 L (0.52-1.04) mg/dL Alkaline Phosphatase 131 H (38-126) U/L Diabetes panel 07/29/19 Range/Units 19:17 Sodium 136 L (137-145) mmol/L Potassium 4.3 (3.5-5.1) mmol/L Chloride 109 H (98-107) mmol/L Carbon Dioxide 23 (22-30) mmol/L BUN 18 H (7-17) mg/dL Creatinine 0.43 L (0.52-1.04) mg/dL Glucose 96 (74-99) mg/dL Calcium 8.7 (8.4-10.2) mg/dL AST 18 (14-36) U/L ALT <6 (4-34) U/L Alkaline Phosphatase 131 H (38-126) U/L Total Protein 6.6 (6.3-8.2) g/dL Albumin 3.6 (3.5-5.0) g/dL Calcium panel 07/29/19 Range/Units 19:17 Calcium 8.7 (8.4-10.2) mg/dL Albumin 3.6 (3.5-5.0) g/dL Pituitary panel 07/29/19 Range/Units 19:17 Sodium 136 L (137-145) mmol/L Potassium 4.3 (3.5-5.1) mmol/L Chloride 109 H (98-107) mmol/L Carbon Dioxide 23 (22-30) mmol/L BUN 18 H (7-17) mg/dL Creatinine 0.43 L (0.52-1.04) mg/dL Glucose 96 (74-99) mg/dL Calcium 8.7 (8.4-10.2) mg/dL Adrenal panel 07/29/19 Range/Units 19:17 Sodium 136 L (137-145) mmol/L Potassium 4.3 (3.5-5.1) mmol/L Chloride 109 H (98-107) mmol/L Carbon Dioxide 23 (22-30) mmol/L BUN 18 H (7-17) mg/dL Creatinine 0.43 L (0.52-1.04) mg/dL Glucose 96 (74-99) mg/dL Calcium 8.7 (8.4-10.2) mg/dL Total Bilirubin 0.5 (0.2-1.3) mg/dL AST 18 (14-36) U/L ALT <6 (4-34) U/L Alkaline Phosphatase 131 H (38-126) U/L Total Protein 6.6 (6.3-8.2) g/dL Albumin 3.6 (3.5-5.0) g/dL
[2019-07-30] MEDS ORDERED: traMADol-ACETAMINOP 37.5-325MG 1 EACH TAB PO PRN (12:21)
--- NOTE | 2019-07-30 12:33 | P.CNOR ---
History of Present Illness - [facility] Consult date: 07/30/19 Consult reason: fracture History of present illness: Patient is a pleasant 73-year-old female seen at bedside this morning consultation for her left proximal humerus fracture. She is known to our office and Dr. Clemons where she's had a chronic displaced comminuted left proximal humerus fracture. She has been treated conservatively and monitored due to her Parkinson's and osteoporosis. She has frequent falls. She presented to the emergency department yesterday 07/29/2019 after another fall at home. She sl ipped going to step on a scale and fell to her left side. She has had pain at the left arm chronically and continues to have after her most recent fall. She denies any new complaints including numbness or tingling or loss of function of the left hand and wrist or elbow. Review of Systems All systems: negative Constitutional: Denies chills, Denies fever Eyes: denies blurred vision, denies pain Ears, nose, mouth and throat: Denies headache, Denies sore throat Cardiovascular: Denies chest pain, Denies shortness of breath Respiratory: Denies cough Gastrointestinal: Denies abdominal pain, Denies diarrhea, Denies nausea, Denies vomiting Genitourinary: Denies dysuria, Denies hematuria Musculoskeletal: Denies myalgias Integumentary: Denies pruritus, Denies rash Neurological: Denies numbness, Denies weakness Psychiatric: Denies anxiety, Denies depression Endocrine: Denies fatigue, Denies weight change Past Medical History Past Medical History: Neurologic Disorder Additional Past Medical History / Comment(s): Hx Parkinsons. History of Any Multi-Drug Resistant Organisms: None Reported Past Surgical History: Hysterectomy Additional Past Surgical History / Comment(s): Right shoulder surgery Past Anesthesia/Blood Transfusion Reactions: No Reported Reaction Additional Past Anesthesia/Blood Transfusion Reaction / Comm: ponv after hysterectomy. pt lives with spouse in ranch style home that has 3 steps into home. uses cane/walker as needed. no outside services. used to work in billing dept Past Psychological History: Anxiety, Depression Additional Psychological History / Comment(s): occ depresion r/t to med issues, but no thought of wanting to harm self. Smoking Status: Never smoker Past Alcohol Use History: Rare Additional Past Alcohol Use History / Comment(s): smoked occ in her 20's Past Drug Use History: None Reported - Past Family History Mother Family Medical History: No Reported History Additional Family Medical History / Comment(s): alcholic Father Family Medical History: No Reported History Additional Family Medical History / Comment(s): alcoholic Medications and Allergies Home Medications Medication Instructions Recorded Confirmed Type Carbidopa-Levodopa 25-100 mg 1 tab PO TID 04/01/16 07/29/19 History [Sinemet 25-100 mg] Meloxicam [Mobic] 7.5 mg PO BID 04/01/16 07/29/19 History Acetaminophen [Tylenol Extra 500 mg PO BID PRN 07/29/19 07/29/19 History Strength] Allergies Allergy/AdvReac Type Severity Reaction Status Date / Time gabapentin [From Neurontin] AdvReac Severe FALLING Verified 07/29/19 21:53 Physical Examination Inspection of the left shoulder and arm show ecchymoses at the upper arm in the area of the fracture. There are no wounds. Range of motion of the shoulder is not tested due to the fracture. Neurovascular status is intact throughout the left upper extremity with motor and sensation. She has active flexion and extension at the wrist and digits. She has active flexion and extension at the elbow. Sensation is intact to light touch throughout the left upper extremity, hand and digits. 2+ radial pulses present. Less than 2 second capillary refill is present. Hand is warm and well perfused. Results X-rays of the left shoulder show a displaced comminuted left proximal humerus fracture which looks similar to prior x-rays. - Labs Labs: Abnormal Lab Results - Last 24 Hours (Table) 07/29/19 07/29/19 07/29/19 Range/Units 19:17 19:17 19:17 RBC 3.56 L (3.80-5.40) m/uL Hgb 9.7 L (11.4-16.0) gm/dL Hct 31.3 L (34.0-46.0) % APTT 20.2 L (22.0-30.0) sec Sodium 136 L (137-145) mmol/L Chloride 109 H (98-107) mmol/L BUN 18 H (7-17) mg/dL Creatinine 0.43 L (0.52-1.04) mg/dL Alkaline Phosphatase 131 H (38-126) U/L H & H 06/11/20 Range/Units 19:17 Hgb 9.7 L (11.4-16.0) gm/dL Hct 31.3 L (34.0-46.0) % Coagulation 07/29/19 Range/Units 19:17 INR 1.0 (<1.2) Result Diagrams: 07/29/19 19:17 07/29/19 19:17 Assessment and Plan (1) Left humeral fracture Narrative/Plan: Patient has been discussed with Dr. Clemons. There are no plans for immediate surgical intervention. Recommended continued conservative care including pain management and physical therapy. We discussed her following up with Dr. Clemons as an outpatient to review further options including referral for second opinion with a trauma surgeon. She may wear a sling for comfort but not necessary if not helping with her symptoms. We will also add Ultracet for an oral pain medicine option if she can tolerate and helps with her pain. We will continue to follow thank you. Current Visit: Yes Status: Acute Priority: Medium Code(s): S42.302A - UNSP FRACTURE OF SHAFT OF HUMERUS, LEFT ARM, INIT SNOMED Code(s): 30591694 Time with Patient: Greater than 30
[2019-07-30] MEDS: CARBIDOPA-LEVODOPA 25-100 MG 1 EACH TAB PO SCH ×2 (15:14→22:27)
[2019-07-30 15:46] VITALS: BMI 20.9
[2019-07-30] MEDS: MELOXICAM 7.5 MG TAB PO SCH (22:26)
--- NOTE | 2019-07-30 23:45 | P.CONS ---
History of Present Illness - Reason for Consult Consult date: 07/30/19 Medical management - Chief Complaint Fall - History of Present Illness Patient is a 73-year-old female with known history of Parkinson's disease and multiple falls, anxiety/depression was brought to the hospital due to fall. Patient had history of falls in the past and sustained left shoulder injury few months back. Patient has been having bony deformity ever since. Patient states that she was walking to her scale when she lost her balance and fell on the left side of her body. As per her she developed increasing pain but ecchymosis has been present over the left humerus region for several months since the initial fall. Patient states that her left shoulder pain improved with IV pain medications in the ER. X-ray of the left humerus showed a severely comminuted/displaced humeral neck fracture. CT head and cervical spine showed no acute fracture or dislocation evident in the cervical spine. No acute intracranial hemorrhage, mass-effect, or midline s hift is seen. Laboratory data showed WBC 7.5, hemoglobin 9.7, platelets 268 Sodium 136, potassium 4.3, chloride 109, BUN 18 and creatinine 0.43 liver enzymes are not elevated Albumin 3.6 and coronavirus PCR not detected. Review of Systems Constitutional: Patient denies any fever or chills . No generalized weakness or weight loss. Abdomen: Patient denied nausea vomiting and diarrhea and abdominal pain. Cardiovascular: Patient denies any chest pain or short of breath no palpitations. Respiratory: patient denied any cough is from production. No shortness of breath Neurologic: Patient denied any numbness or tingling headache. Musculoskeletal: Patient denies any complaints of joint swelling or deformity. left shoulder pain Skin: Negative Psychiatric: Negative Endocrine: No heat or cold intolerance. No recent weight gain. Genitourinary: No dysuria or hematuria. All other 14 point ROS negative except the above Past Medical History Past Medical History: Neurologic Disorder Additional Past Medical History / Comment(s): Hx Parkinsons. History of Any Multi-Drug Resistant Organisms: None Reported Past Surgical History: Hysterectomy Additional Past Surgical History / Comment(s): Right shoulder surgery Past Anesthesia/Blood Transfusion Reactions: No Reported Reaction Additional Past Anesthesia/Blood Transfusion Reaction / Comm: ponv after hysterectomy. pt lives with spouse in ranch style home that has 3 steps into home. uses cane/walker as needed. no outside services. used to work in billing dept Past Psychological History: Anxiety, Depression Additional Psychological History / Comment(s): occ depresion r/t to med issues, but no thought of wanting to harm self. Smoking Status: Never smoker Past Alcohol Use History: Rare Additional Past Alcohol Use History / Comment(s): smoked occ in her 20's Past Drug Use History: None Reported - Past Family History Mother Family Medical History: No Reported History Additional Family Medical History / Comment(s): alcholic Father Family Medical History: No Reported History Additional Family Medical History / Comment(s): alcoholic Medications and Allergies Home Medications Medication Instructions Recorded Confirmed Type Carbidopa-Levodopa 25-100 mg 1 tab PO TID 04/01/16 07/29/19 History [Sinemet 25-100 mg] Meloxicam [Mobic] 7.5 mg PO BID 04/01/16 07/29/19 History Acetaminophen [Tylenol Extra 500 mg PO BID PRN 07/29/19 07/29/19 History Strength] traMADol HCL/ACETAMINOPHEN 1 tab PO Q4HR PRN 3 Days #18 tab 07/30/19 Rx [Ultracet 37.5-325] Allergies Allergy/AdvReac Type Severity Reaction Status Date / Time gabapentin [From Neurontin] AdvReac Severe FALLING Verified 07/29/19 21:53 Physical Exam Vitals: Vital Signs Temp Pulse Pulse Resp BP BP Pulse Ox 07/30/19 05:03 98.2 F 77 18 131/76 96 07/29/19 22:09 98.3 F 89 18 137/73 99 07/29/19 18:18 97.9 F 85 18 123/65 98 Intake and Output 07/29/19 07/30/19 07/30/19 22:59 06:59 14:59 Intake Total 860 Balance 860 Intake: Intake, IV Titration 800 Amount Sodium Chloride 0.9% 1, 800 000 ml @ 75 mls/hr IV . [id number] ONE Rx#:[id number] Oral 60 Other: Voiding Method Toilet Diaper # Voids 1 Weight 47.174 kg 47.174 kg PHYSICAL EXAMINATION: Patient is lying in the bed comfortably, no acute distress, awake alert and oriented.. HEENT: Normocephalic. Neck is supple. Pupils reactive. Nostrils clear. Oral cavity is moist. Ears reveal no drainage. Neck reveals no JVD, carotid bruits, or thyromegaly. CHEST EXAMINATION: Trachea is central. Symmetrical expansion. Lung santiago clear to auscultation and percussion. Bilateral surgical site is bandaged. CARDIAC: Normal S1, S2 with no gallops. No murmurs ABDOMEN: Soft. Bowel sounds normal. No organomegaly. No abdominal bruits. Extremities: reveal no edema. No clubbing or cyanosis Neurologically awake, alert, oriented x3 with well-coordinated movements. tremors, No focal deficits noted Skin: No rash or skin lesions. Psychiatric: Coperative. Nonsuicidal Musculoskeletal: No joint swelling or deformity. Normal range of motion. Results CBC & Chem 7: 07/29/19 19:17 07/29/19 19:17 Labs: Abnormal Lab Results - Last 24 Hours (Table) 07/29/19 07/29/19 07/29/19 Range/Units 19:17 19:17 19:17 RBC 3.56 L (3.80-5.40) m/uL Hgb 9.7 L (11.4-16.0) gm/dL Hct 31.3 L (34.0-46.0) % APTT 20.2 L (22.0-30.0) sec Sodium 136 L (137-145) mmol/L Chloride 109 H (98-107) mmol/L BUN 18 H (7-17) mg/dL Creatinine 0.43 L (0.52-1.04) mg/dL Alkaline Phosphatase 131 H (38-126) U/L Assessment and Plan Assessment: Status post mechanical fall likely due to Parkinson's tremors. Previous history of fall with comminuted left humerus fracture-nonhealing. Parkinson's disease with tremors Normocytic Anemia hb 9.7 mild hypovolemic Hyponatremia Anxiety/depression DVT prophylaxis with heparin subcu Plan: Patient will be continued pain management with Mobic and Tylenol. Morphine IV as needed for severe pain. Continue with gentle hydration and follow-up closely. Orthopedic surgery was consulted. Further recommendations based on the clinical course. PT OT will be consulted and patient may need possible rehab transfer. Time with Patient: Greater than 30
[2019-07-31 07:14] LABS: Basophils % (A) 0 %; Eosinophils # (A) 0.1 k/uL (0-0.7); Eosinophils % (A) 1 %; HCT 27.9 % (34.0-46.0); HGB 8.8 gm/dL (11.4-16.0); Hypochromasia Marked; Lymphocytes # (A) 1.3 k/uL (1.0-4.8); Lymphocytes % (A) 27 %; MCH 28.1 pg (25.0-35.0); MCHC 31.3 g/dL (31.0-37.0); MCV 89.7 fL (80.0-100.0); Mean Platelet Volume 7.4; Monocytes # (A) 0.3 k/uL (0-1.0); Monocytes % (A) 7 %; Neutrophils % (A) 62 %; Platelet Count 217 k/uL (150-450); RBC 3.12 m/uL (3.80-5.40); WBC 4.8 k/uL (3.8-10.6)
[2019-07-31 07:42] LABS: African American GFR (CKD) >90 (>60 ml/min/1.73 sqM); Anion Gap 2 mmol/L; Blood Urea Nitrogen 13 mg/dL (7-17); Calcium 8.2 mg/dL (8.4-10.2); Carbon Dioxide 25 mmol/L (22-30); Chloride 111 mmol/L (98-107); Glucose 95 mg/dL (74-99); Non-African American GFR(CKD) >90 (>60 ml/min/1.73 sqM); Potassium 3.9 mmol/L (3.5-5.1); Sodium 138 mmol/L (137-145)
[2019-07-31] MEDS: CARBIDOPA-LEVODOPA 25-100 MG 1 EACH TAB PO SCH ×3 (08:17→20:53)
[2019-07-31] MEDS: MELOXICAM 7.5 MG TAB PO SCH ×2 (08:17→20:52)
--- NOTE | 2019-07-31 10:14 | P.PN ---
Subjective Progress Note Date: 07/31/19 Principal diagnosis: left proximal humerus fracture Patient is a pleasant 73-year-old female seen at bedside this morning. She has a known proximal humerus fracture which we are following. She has minimal pain at rest today. She is resting in bed comfortably without a sling. She has not requested further pain medications. She denies any new complaints including numbness or tingling. Objective - Vital Signs Vital signs: Vital Signs Temp 98.2 F 07/31/19 05:30 Pulse 73 07/31/19 05:30 Resp 15 07/31/19 05:30 BP 160/75 07/31/19 05:30 Pulse Ox 98 07/31/19 05:30 Intake & Output 07/30/19 07/31/19 07/31/19 18:59 06:59 18:59 Intake Total 1580 Balance 1580 Weight 47.174 kg Intake: Intake, IV Titration 600 Amount Sodium Chloride 0.9% 1, 600 000 ml @ 75 mls/hr IV . [id number] ONE Rx#:[id number] Oral 980 Other: Voiding Method Toilet Toilet Diaper Diaper # Voids 3 1 - Exam Inspection of the left upper extremity shows resolving ecchymoses. There are no wounds. Range of motion of left shoulder is not tested due to the fracture. She continues to have neurovascular status intact with motor and sensation throughout the left upper extremity including active flexion extension at the elbow, wrist and hand. 2+ radial pulses present and less than 2 second capillary refill is present sensation light touch is intact throughout the left upper extremity. - Labs CBC & Chem 7: 07/31/19 06:26 07/31/19 06:26 Labs: Abnormal Lab Results - Last 24 Hours (Table) 07/31/19 07/31/19 Range/Units 06:26 06:26 RBC 3.12 L (3.80-5.40) m/uL Hgb 8.8 L (11.4-16.0) gm/dL Hct 27.9 L (34.0-46.0) % Chloride 111 H (98-107) mmol/L Calcium 8.2 L (8.4-10.2) mg/dL Assessment and Plan (1) Left humeral fracture Narrative/Plan: Patient has been discussed with Dr. Clemons. There continues to be no plans for immediate surgical intervention. Recommended continued conservative care including pain management and physical therapy. We discussed her following up with Dr. Clemons as an outpatient to review further options including referral for second opinion with a trauma surgeon. She may wear a sling for comfort but not necessary if not helping with her symptoms. She may be discharged from orthopedics standpoint and we'll sign off for now. Thank you Current Visit: Yes Status: Acute Priority: Medium Code(s): S42.302A - UNSP FRACTURE OF SHAFT OF HUMERUS, LEFT ARM, INIT SNOMED Code(s): 53502722 Time with Patient: Less than 30
[2019-08-01] MEDS: MELOXICAM 7.5 MG TAB PO SCH ×2 (09:28→21:37)
[2019-08-01] MEDS: CARBIDOPA-LEVODOPA 25-100 MG 1 EACH TAB PO SCH ×3 (09:28→21:38)
--- NOTE | 2019-08-01 11:04 | P.PN ---
Subjective Progress Note Date: 08/01/19 Principal diagnosis: left proximal humerus fracture Patient is a pleasant 73-year-old female seen again at bedside this morning. She has a known proximal humerus fracture which we are following. She has no new complaints today. She has minimal pain at rest today with her left shoulder. . She has not requested further pain medications. She denies any new complaints including numbness or tingling. Objective - Vital Signs Vital signs: Vital Signs Temp 98.2 F 08/01/19 04:25 Pulse 71 08/01/19 04:25 Resp 16 08/01/19 04:25 BP 150/76 08/01/19 04:25 Pulse Ox 98 08/01/19 04:25 Intake & Output 07/31/19 08/01/19 08/01/19 18:59 06:59 18:59 Intake Total 750 100 Balance 750 100 Intake: Oral 750 100 Other: Voiding Method Toilet Toilet Toilet Diaper Diaper Diaper # Voids 1 1 - Exam Inspection of the left upper extremity shows resolving ecchymoses. There are no wounds. Range of motion of left shoulder is not tested due to the fracture. She continues to have neurovascular status intact with motor and sensation t hroughout the left upper extremity including active flexion extension at the elbow, wrist and hand. 2+ radial pulses present and less than 2 second capillary refill is present sensation light touch is intact throughout the left upper extremity. - Constitutional General appearance: Present: no acute distress - Labs CBC & Chem 7: 07/31/19 06:26 07/31/19 06:26 Assessment and Plan (1) Left humeral fracture Narrative/Plan: There continues to be no plans for immediate surgical intervention. Recommended continued conservative care including pain management and physical therapy. We discussed her following up with Dr. Clemons as an outpatient to review further options including referral for second opinion with a trauma surgeon. She may wear a sling for comfort but not necessary if not helping with her symptoms. She may be discharged from orthopedics standpoint and we'll sign off for now. Thank you Current Visit: Yes Status: Acute Priority: Medium Code(s): S42.302A - UNSP FRACTURE OF SHAFT OF HUMERUS, LEFT ARM, INIT SNOMED Code(s): 98994489 Time with Patient: Less than 30
[2019-08-01] MEDS: ACETAMINOPHEN TAB 325 MG TAB PO PRN (14:03)
[2019-08-01 22:10] VITALS: PULSE 75; RESP 12
--- NOTE | 2019-08-02 00:58 | P.PN ---
Subjective Progress Note Date: 07/31/19 Patient is a 73-year-old female with known history of Parkinson's disease and multiple falls, anxiety/depression was brought to the hospital due to fall. Patient had history of falls in the past and sustained left shoulder injury few months back. Patient has been having bony deformity ever since. Patient states that she was walking to her scale when she lost her balance and fell on the left side of her body. As per her she developed increasing pain but ecchymosis has been present over the left humerus region for several months since the initial fall. Patient states that her left shoulder pain improved with IV pain medications in the ER. X-ray of the left humerus showed a severely comminuted/displaced humeral neck fracture. CT head and cervical spine showed no acute fracture or dislocation evident in the cervical spine. No acute intracranial hemorrhage, mass-effect, or midline shift is seen. Laboratory data showed WBC 7.5, hemoglobin 9.7, platelets 268 Sodium 136, potassium 4.3, chloride 109, BUN 18 and creatinine 0.43 liver enzymes are not elevated Albumin 3.6 and coronavirus PCR not detected. 07/31/2019 Patient is currently lying in bed comfortably. Left shoulder pain is much better. Surgery recommends no intervention at this time. Otherwise patient is tolerating oral diet. PT OT will be consulted possible rehab transfer. Current medications reviewed. Objective - Vital Signs Vital signs: Vital Signs Temp 98.2 F 07/31/19 05:30 Pulse 73 07/31/19 05:30 Resp 15 07/31/19 05:30 BP 160/75 07/31/19 05:30 Pulse Ox 98 07/31/19 05:30 Intake & Output 07/30/19 07/31/19 07/31/19 18:59 06:59 18:59 Intake Total 1580 Balance 1580 Weight 47.174 kg Intake: Intake, IV Titration 600 Amount Sodium Chloride 0.9% 1, 600 000 ml @ 75 mls/hr IV . [id number] ONE Rx#:[id number] Oral 980 Other: Voiding Method Toilet Toilet Toilet Diaper Diaper Diaper # Voids 3 1 - Exam PHYSICAL EXAMINATION: Patient is lying in the bed comfortably, no acute distress, awake alert and oriented.. HEENT: Normocephalic. Neck is supple. Pupils reactive. Nostrils clear. Oral cavity is moist. Ears reveal no drainage. Neck reveals no JVD, carotid bruits, or thyromegaly. CHEST EXAMINATION: Trachea is central. Symmetrical expansion. Lung santiago clear to auscultation and percussion. Bilateral surgical site is bandaged. CARDIAC: Normal S1, S2 with no gallops. No murmurs ABDOMEN: Soft. Bowel sounds normal. No organomegaly. No abdominal bruits. Extremities: reveal no edema. No clubbing or cyanosis Neurologically awake, alert, oriented x3 with well-coordinated movements. tremors, No focal deficits noted Skin: No rash or skin lesions. Psychiatric: Coperative. Nonsuicidal Musculoskeletal: No joint swelling or deformity. Left shoulder tenderness over humerus with decreased range of motion.. - Labs CBC & Chem 7: 07/31/19 06:26 07/31/19 06:26 Labs: Abnormal Lab Results - Last 24 Hours (Table) 07/31/19 07/31/19 Range/Units 06:26 06:26 RBC 3.12 L (3.80-5.40) m/uL Hgb 8.8 L (11.4-16.0) gm/dL Hct 27.9 L (34.0-46.0) % Chloride 111 H (98-107) mmol/L Calcium 8.2 L (8.4-10.2) mg/dL Assessment and Plan Assessment: Status post mechanical fall likely due to Parkinson's tremors. Previous history of fall with comminuted left humerus fracture-nonhealing. Parkinson's disease with tremors Normocytic Anemia hb 9.7 mild hypovolemic Hyponatremia Anxiety/depression DVT prophylaxis with heparin subcu Plan: Patient will be continued pain management with Mobic and Tylenol. Morphine IV as needed for severe pain. Continue with gentle hydration and follow-up closely. Orthopedic surgery was consulted. no intervention at this time. Further recommendations based on the clinical course. PT OT will be consulted and patient may need possible rehab transfer. Time with Patient: Greater than 30
--- NOTE | 2019-08-02 00:59 | P.PN ---
Subjective Progress Note Date: 08/01/19 Principal diagnosis: Status post mechanical fall likely due to Parkinson's tremors. Previous history of fall with comminuted left humerus fracture-nonhealing. Patient is a 73-year-old female with known history of Parkinson's disease and multiple falls, anxiety/depression was brought to the hospital due to fall. Patient had history of falls in the past and sustained left shoulder injury few months back. Patient has been having bony deformity ever since. Patient states that she was walking to her scale when she lost her balance and fell on the left side of her body. As per her she developed increasing pain but ecchymosis has been present over the left humerus region for several months since the initial fall. Patient states that her left shoulder pain improved with IV pain medications in the ER. X-ray of the left humerus showed a severely comminuted/displaced humeral neck fracture. CT head and cervical spine showed no acute fracture or dislocation evident in the cervical spine. No acute intracranial hemorrhage, mass-effect, or midline shift is seen. Laboratory data showed WBC 7.5, hemoglobin 9.7, platelets 268 Sodium 136, potassium 4.3, chloride 109, BUN 18 and creatinine 0.43 liver enzymes are not elevated Albumin 3.6 and coronavirus PCR not detected. 07/31/2019 Patient is currently lying in bed comfortably. Left shoulder pain is much better. Surgery recommends no intervention at this time. Otherwise patient is tolerating oral diet. PT OT will be consulted possible rehab transfer. 08/01/2019 Patient denied any new complaints today. Denied any left shoulder pain. No nausea vomiting or abdominal pain. PT OT and possible rehab transfer. Patient states not sure whether she want to go to rehab home with physical therapy at this time. Anticipate discharge in the next 24 hours. Orthopedic surgery sig hakeem off now. Current medications reviewed. Objective - Vital Signs Vital signs: Vital Signs Temp 98.6 F 08/01/19 11:34 Pulse 73 08/01/19 11:34 Resp 16 08/01/19 11:34 BP 130/70 08/01/19 11:34 Pulse Ox 98 08/01/19 11:34 Intake & Output 08/01/19 08/01/19 08/02/19 06:59 18:59 06:59 Intake Total 100 Balance 100 Intake: Oral 100 Other: Voiding Method Toilet Bedside Commode Diaper Diaper # Voids 1 2 - Exam PHYSICAL EXAMINATION: Patient is lying in the bed comfortably, no acute distress, awake alert and oriented.. HEENT: Normocephalic. Neck is supple. Pupils reactive. Nostrils clear. Oral cavity is moist. Ears reveal no drainage. Neck reveals no JVD, carotid bruits, or thyromegaly. CHEST EXAMINATION: Trachea is central. Symmetrical expansion. Lung santiago clear to auscultation and percussion. Bilateral surgical site is bandaged. CARDIAC: Normal S1, S2 with no gallops. No murmurs ABDOMEN: Soft. Bowel sounds normal. No organomegaly. No abdominal bruits. Extremities: reveal no edema. No clubbing or cyanosis Neurologically awake, alert, oriented x3 with well-coordinated movements. t remors, No focal deficits noted Skin: No rash or skin lesions. Psychiatric: Coperative. Nonsuicidal Musculoskeletal: No joint swelling or deformity. Left shoulder tenderness over humerus with decreased range of motion.. - Labs CBC & Chem 7: 07/31/19 06:26 07/31/19 06:26 Assessment and Plan Assessment: Status post mechanical fall likely due to Parkinson's tremors. Previous history of fall with comminuted left humerus fracture-nonhealing. Parkinson's disease with tremors Normocytic Anemia hb 9.7 mild hypovolemic Hyponatremia Anxiety/depression DVT prophylaxis with heparin subcu Plan: Patient will be continued pain management with Mobic and Tylenol. Morphine IV as needed for severe pain. Continue with gentle hydration and follow-up closely. Orthopedic surgery was consulted. no intervention at this time. Further recommendations based on the clinical course. PT OT will be consulted and patient may need possible rehab transfer.
[2019-08-02 06:19] VITALS: BP 159/81; TEMP 92.2
[2019-08-02 07:51] LABS: Basophils % (A) 0 %; Eosinophils # (A) 0.1 k/uL (0-0.7); Eosinophils % (A) 1 %; HGB 9.6 gm/dL (11.4-16.0); Hypochromasia Marked; Lymphocytes # (A) 1.4 k/uL (1.0-4.8); Lymphocytes % (A) 28 %; MCH 27.7 pg (25.0-35.0); MCHC 30.8 g/dL (31.0-37.0); MCV 89.7 fL (80.0-100.0); Mean Platelet Volume 7.4; Monocytes # (A) 0.3 k/uL (0-1.0); Monocytes % (A) 6 %; Neutrophils # (A) 3.1 k/uL (1.3-7.7); Neutrophils % (A) 63 %; Platelet Count 266 k/uL (150-450); RBC 3.45 m/uL (3.80-5.40); RDW 14.3 % (11.5-15.5); WBC 4.9 k/uL (3.8-10.6)
[2019-08-02] MEDS: MELOXICAM 7.5 MG TAB PO SCH (08:01)
[2019-08-02] MEDS: CARBIDOPA-LEVODOPA 25-100 MG 1 EACH TAB PO SCH (08:01)
[2019-08-02 08:11] LABS: African American GFR (CKD) >90 (>60 ml/min/1.73 sqM); Anion Gap 4 mmol/L; Blood Urea Nitrogen 13 mg/dL (7-17); Calcium 8.6 mg/dL (8.4-10.2); Carbon Dioxide 26 mmol/L (22-30); Chloride 108 mmol/L (98-107); Glucose 96 mg/dL (74-99); Non-African American GFR(CKD) >90 (>60 ml/min/1.73 sqM); Sodium 138 mmol/L (137-145)
[2019-08-02] MEDS: ACETAMINOPHEN TAB 325 MG TAB PO PRN (12:27)
--- NOTE | 2019-08-11 03:38 | P.DS ---
Providers Date of admission: 07/31/19 12:13 Expected date of discharge: 08/02/19 Attending physician: Portia Stephens Consults: 07/29/19 21:37 Consult Physician Urgent Consulting Provider: Tomas Clemons Consult Reason/Comments: Humerus fracture Do you want consulting provider notified?: Yes Consult Physician Urgent Consulting Provider: Viki Toussaint Consult Reason/Comments: Medical management Do you want consulting provider notified?: Yes Primary care physician: Susan Villalobos Hospital Course: discharge diagnosis Status post mechanical fall likely due to Parkinson's tremors. Previous history of fall with comminuted left humerus fracture-nonhealing. Parkinson's disease with tremors Normocytic Anemia hb 9.7 mild hypovolemic Hyponatremia Anxiety/depression DVT prophylaxis with heparin subcu Hospital course Patient is a 73-year-old female with known history of Parkinson's disease and multiple falls, anxiety/depression was brought to the hospital due to fall. Patient had history of falls in the past and sustained left shoulder injury few months back. Patient has been having bony deformity ever since. Patient states that she was walking to her scale when she lost her balance and fell on the left side of her body. As per her she developed increasing pain but ecchymosis has been present over the left humerus region for several months since the initial fall. Patient states that her left shoulder pain improved with IV pain medications in the ER. X-ray of the left humerus showed a severely comminuted/displaced humeral neck fracture. CT head and cervical spine showed no acute fracture or dislocation evident in the cervical spine. No acute intracranial hemorrhage, mass-effect, or midline shift is seen. Laboratory data showed WBC 7.5, hemoglobin 9.7, platelets 268 Sodium 136, potassium 4.3, chloride 109, BUN 18 and creatinine 0.43 liver enzymes are not elevated Albumin 3.6 and coronavirus PCR not detected. 07/31/2019 Patient is currently lying in bed comfortably. Left shoulder pain is much better. Surgery recommends no intervention at this time. Otherwise patient is tolerating oral diet. PT OT will be consulted possible rehab transfer. 08/01/2019 Patient denied any new complaints today. Denied any left shoulder pain. No nausea vomiting or abdominal pain. PT OT and possible rehab transfer. Patient states not sure whether she want to go to rehab home with physical therapy at this time. Anticipate discharge in the next 24 hours. Orthopedic surgery signed off now. 08/02/2019 Patient denied any complaints of left shoulder pain now. Pain is controlled. Patient wants to be discharged home with physical therapy. Refused to go to rehab. No fever no chills. No cough or sputum production. No chest pain or shortness of breath. Patient is being discharged home with home physical therapy/PT OT. PHYSICAL EXAMINATION: Patient is lying in the bed comfortably, no acute distress, awake alert and oriented.. HEENT: Normocephalic. Neck is supple. Pupils reactive. Nostrils clear. Oral cavity is moist. Ears reveal no drainage. Neck reveals no JVD, carotid bruits, or thyromegaly. CHEST EXAMINATION: Trachea is central. Symmetrical expansion. Lung santiago clear to auscultation and percussion. Bilateral surgical site is bandaged. CARDIAC: Normal S1, S2 with no gallops. No murmurs ABDOMEN: Soft. Bowel sounds normal. No organomegaly. No abdominal bruits. Extremities: reveal no edema. No clubbing or cyanosis Neurologically awake, alert, oriented x3 with well-coordinated movements. tremors, No focal deficits noted Skin: No rash or skin lesions. Psychiatric: Coperative. Nonsuicidal Musculoskeletal: No joint swelling or deformity. Left shoulder tenderness over humerus with improved range of motion.. Discharge Vitals Reviewed. Patient Condition at Discharge: Stable Plan - Discharge Summary Discharge Rx Participant: Yes New Discharge Prescriptions: New traMADol HCL/ACETAMINOPHEN [Ultracet 37.5-325] 1 tab PO Q4HR PRN 3 Days #18 tab PRN Reason: Pain Continue Meloxicam [Mobic] 7.5 mg PO BID Carbidopa-Levodopa 25-100 mg [Sinemet 25-100 mg] 1 tab PO TID Discontinued Acetaminophen [Tylenol Extra Strength] 500 mg PO BID PRN PRN Reason: Pain Discharge Medication List Carbidopa-Levodopa 25-100 mg [Sinemet 25-100 mg] 1 tab PO TID 04/01/16 [History] Meloxicam [Mobic] 7.5 mg PO BID 04/01/16 [History] traMADol HCL/ACETAMINOPHEN [Ultracet 37.5-325] 1 tab PO Q4HR PRN 3 Days #18 tab 07/30/19 [Rx] Follow up Appointment(s)/Referral(s): Susan Villalobos MD [Primary Care Provider] - 08/03/19 2:00 pm Premier Bedoya,Nurse [NON-STAFF] - 1 Week Tomas Clemons MD [STAFF PHYSICIAN] - 08/06/19 1:20 pm Patient Instructions/Handouts: Arm Fracture in Adults (DC), How to Use a Sling (DC), Fall Prevention for Older Adults (DC) Activity/Diet/Wound Care/Special Instructions: Please follow up with an fabrication specialist. Return to emergency department if symptoms worsen. May wear sling for comfort Non weightbearing left upper extremity take meds as directed F/U with Dr. Clemons in office [facility] care - heart healthy diet Discharge Disposition: HOME WITH HOME HEALTH SERVICES
== END 2019-08-02 14:45 | disposition home health service (06) | DRG 563 ==
LOC: EC 18:12 → 5NMEDONC 21:40 → OBSVTOIN 07-31 12:13
PROVIDERS: ADMIT Internal Medicine; ATTEND Internal Medicine
DX: S42.212A Unspecified displaced fracture of surgical neck of left humerus, initial encounter for closed fracture (principal); E87.1 Hypo-osmolality and hyponatremia; G20 Parkinson's disease; E86.1 Hypovolemia; M81.0 Age-related osteoporosis without current pathological fracture; Z11.59 Encounter for screening for other viral diseases; D64.9 Anemia, unspecified; F41.8 Other specified anxiety disorders; R29.6 Repeated falls; Z79.1 Long term (current) use of non-steroidal anti-inflammatories (NSAID); Z79.899 Other long term (current) drug therapy; Z91.81 History of falling; Z88.8 Allergy status to other drugs, medicaments and biological substances; W01.0XXA Fall on same level from slipping, tripping and stumbling without subsequent striking against object, initial encounter; Y92.009 Unspecified place in unspecified non-institutional (private) residence as the place of occurrence of the external cause; Y93.01 Activity, walking, marching and hiking; Z90.710 Acquired absence of both cervix and uterus; Z87.891 Personal history of nicotine dependence; Z81.1 Family history of alcohol abuse and dependence
CPT/HCPCS: 36415; 70450; 72125; 80048; 80053; 82607; 84443; 85025; 85610; 85730; 93005; 96374; 99285

== ENCOUNTER → 2019-10-29 | Outpatient (CLI) | payer MEDICARE ==
--- NOTE | 2019-11-01 07:13 | BD ---
EXAMINATION TYPE: Axial Bone Density DATE OF EXAM: 10/29/2019 COMPARISON: 2002 DEXA bone scan report. CLINICAL HISTORY: Height: 4 FT 8 1/2 IN Weight: 96 FRAX RISK QUESTIONS: Alcohol (3 or more units per day): NO Family History (Parent hip fracture): YES Glucocorticoids (More than 3mos): NO (Ex: prednisone, prednisolone, methylprednisolone, dexamethasone, and hydrocortisone). History of Fracture in Adulthood: NO Secondary Osteoporosis: 1. Type 1 Diabetes: NO 2. Hyperthyroidism: NO 3. Menopause before 45: NO 4. Malnutrition: NO 5. Chronic liver disease: NO Rheumatoid Arthritis: NO Current Tobacco Use: NO RISK FACTORS HISTORY OF: Family History of Osteoporosis: NO Active: NO Postmenopausal woman: LATE 40'S EARLY 50'S Lost more than 2 inches in height since high school: YES Frequent falls: YES Poor Health: YES MEDICATIONS: Additional Medications: PARKINSAN'S MEDS, Additional History: PARKINSANS, POOR HISTORIANS EXAM MEASUREMENTS: Bone mineral densitometry was performed using the [employer] System. Bone mineral density as measured about the Lumbar spine is: ----- L1-L4(G/cm2): 0.767 T Score Values are as follows: ----- L2: -3.9 ----- L3: -3.4 ----- L4: -3.1 ----- L1-L4: -3.4 Bone mineral density has: DECREASED -18.3 % since study of: 2002 Bone mineral density about the R hip (g/cm2): 0.689 Bone mineral density about the L hip (g/cm2): 0.665 T Score values are as follows: -----R Neck: -2.5 -----L Neck: -2.7 -----R Total: -2.4 -----L Total: -2.7 Bone mineral density has: DECREASED -29.3 % since study of: 2001 IMPRESSION: Osteoporosis (T Score less than -2.5) is now present. There is increased fracture risk and therapy is usually indicated based on age. Re-Screen 1-2 years. NOTE: T-SCORE=SD OF THE YOUNG ADULT MEAN.
== END | disposition home or self-care (01) ==
LOC: RADBDWWP 14:47
PROVIDERS: ATTEND Family Medicine
DX: M81.0 Age-related osteoporosis without current pathological fracture (principal)
CPT/HCPCS: 77080

== ENCOUNTER → 2019-11-09 | Outpatient (CLI) | payer MEDICARE ==
--- NOTE | 2019-11-09 10:52 | MM ---
Reason for exam: clinical finding. Last mammogram was performed 3 years and 1 month ago. History: Patient is postmenopausal. Took hormonal contraceptives for 1 year beginning at age 22. Took estrogen for 2 years beginning at age 52. Physical Findings: Nurse did not find any significant physical abnormalities on exam. MG Diagnostic Mammo w CAD DOREEN Bilateral CC and MLO view(s) were taken. Prior study comparison: September 27, 2016, bilateral MG screening mammo w CAD. August 10, 2014, bilateral MG screening mammo w CAD. The breast tissue is heterogeneously dense. This may lower the sensitivity of mammography. Previous mammotome biopsy in the left breast. No significant new findings when compared with previous films. These results were verbally communicated with the patient and result sheet given to the patient on 11/09/19. ASSESSMENT: Benign, BI-RAD 2 RECOMMENDATION: Routine screening mammogram of both breasts in 1 year. Manage on a clinical basis with regard to left breast pain.
== END | disposition home or self-care (01) ==
LOC: RADMAMWWP 09:39
PROVIDERS: ATTEND Family Medicine
DX: N64.4 Mastodynia (principal)
CPT/HCPCS: 77066

== ENCOUNTER 2020-01-31 16:06 | Inpatient (IN) | payer MEDICARE ==
[2020-01-31] MEDS ORDERED: HYDROcodone/APAP 5-325MG 1 EACH TAB PO PRN (16:14)
[2020-01-31] MEDS ORDERED: TEMAZEPAM 15 MG CAP PO PRN (16:14)
[2020-01-31] MEDS ORDERED: SENNOSIDES-DOCUSATE SODIUM 1 EACH TAB PO PRN (16:14)
[2020-01-31] MEDS ORDERED: METOCLOPRAMIDE 5 MG/ML 2 ML VIAL IVP PRN (16:14)
[2020-01-31] MEDS ORDERED: diphenhydrAMINE 25 MG CAP PO PRN (16:14)
[2020-01-31] MEDS ORDERED: ONDANSETRON 4 MG/2 ML VIAL IVP PRN (16:14)
[2020-01-31] MEDS ORDERED: HYDROmorphone 0.5 MG/0.5 ML SYRINGE IVP PRN ×2 (16:14)
[2020-01-31] MEDS: HYDROmorphone 0.5 MG/0.5 ML SYRINGE IVP PRN ×2 (17:10→20:19)
[2020-01-31] MEDS ORDERED: hydrALAZINE HCL 25 MG TAB PO PRN (18:28)
[2020-01-31] MEDS ORDERED: amLODIPine 5 MG TAB PO SCH (19:00)
[2020-01-31] MEDS: CARBIDOPA-LEVODOPA 25-100 MG 1 EACH TAB PO SCH (20:18)
[2020-02-01] MEDS: CARBIDOPA-LEVODOPA 25-100 MG 1 EACH TAB PO SCH ×3 (09:30→20:20)
[2020-02-01] MEDS: HYDROmorphone 0.5 MG/0.5 ML SYRINGE IVP PRN (10:32)
--- NOTE | 2020-02-01 11:25 | P.CONS ---
History of Present Illness - Reason for Consult Preoperative clearance - History of Present Illness 34-year-old pleasant female with known history of Parkinson's and had falls in the past came in after she had a mechanical fall without syncope found to have dislocation of the right shoulder. Patient pain is better controlled at this time. Patient denied any fever chills nausea vomiting dysuria. Patient denied any significant coronary pulmonary history. Patient is a functional woman a patient denied any shortness of breath, chest pain, orthopnea, paroxysmal nocturnal dyspnea. Review of Systems REVIEW OF SYSTEMS: CONSTITUTIONAL: No fever, no malaise, no fatigue. HEENT: No recent visual problems or hearing problems. Denied any sore throat. CARDIOVASCULAR: No chest pain, orthopnea, PND, no palpitations, no syncope. PULMONARY: No shortness of breath, no cough, no hemoptysis. GASTROINTESTINAL: No diarrhea, no nausea, no vomiting, no abdominal pain. NEUROLOGICAL: No headaches, no weakness, no numbness. HEMATOLOGICAL: Denies any bleeding or petechiae. GENITOURINARY: Denies any burning micturition, frequency, or urgency. MUSCULOSKELETAL/RHEUMATOLOGICAL: As mentioned in HPI ENDOCRINE: Denies any polyuria or polydipsia. The rest of the 14-point review of systems is negative. Past Medical History Past Medical History: Neurologic Disorder Additional Past Medical History / Comment(s): Hx Parkinsons. History of Any Multi-Drug Resistant Organisms: None Reported Past Surgical History: Hysterectomy Additional Past Surgical History / Comment(s): Right shoulder surgery Past Anesthesia/Blood Transfusion Reactions: No Reported Reaction Additional Past Anesthesia/Blood Transfusion Reaction / Comm: ponv after hysterectomy. pt lives with spouse in ranch style home that has 3 steps into home. uses cane/walker as needed. no outside services. used to work in billing dept Past Psychological History: Anxiety, Depression Additional Psychological History / Comment(s): occ depresion r/t to med issues, but no thought of wanting to harm self. Smoking Status: Never smoker Past Alcohol Use History: Rare Additional Past Alcohol Use History / Comment(s): smoked occ in her 20's Past Drug Use History: None Reported - Past Family History Mother Family Medical History: No Reported History Additional Family Medical History / Comment(s): alcholic Father Family Medical History: No Reported History Additional Family Medical History / Comment(s): alcoholic Medications and Allergies Home Medications Medication Instructions Recorded Confirmed Type Carbidopa-Levodopa 25-100 mg 1 tab PO TID 04/01/16 01/31/20 History [Sinemet 25-100 mg] Meloxicam [Mobic] 7.5 mg PO BID 04/01/16 01/31/20 History Acetaminophen Tab [Tylenol] 325 mg PO TID PRN 01/31/20 01/31/20 History Allergies Allergy/AdvReac Type Severity Reaction Status Date / Time gabapentin [From Neurontin] AdvReac Severe FALLING Verified 01/31/20 18:45 Physical Exam Vitals: Vital Signs Temp Pulse Resp BP Pulse Ox 02/01/20 07:05 98.7 F 82 20 157/72 96 02/01/20 03:58 98.1 F 94 16 169/75 96 01/31/20 19:20 98.1 F 100 16 162/82 98 01/31/20 18:00 87 197/91 01/31/20 16:52 98.2 F 95 14 200/84 99 Intake and Output 01/31/20 02/01/20 02/01/20 22:59 06:59 14:59 Other: Voiding Method Diaper # Voids 1 1 Weight 45.4 kg PHYSICAL EXAMINATION: GENERAL: The patient is alert and oriented x3, not in any acute distress. Well developed, well nourished. HEENT: Pupils are round and equally reacting to light. EOMI. No scleral icterus. No conjunctival pallor. Normocephalic, atraumatic. No pharyngeal erythema. No thyromegaly. CARDIOVASCULAR: S1 and S2 present. No murmurs, rubs, or gallops. PULMONARY: Chest is clear to auscultation, no wheezing or crackles. ABDOMEN: Soft, nontender, nondistended, normoactive bowel sounds. No palpable organomegaly. MUSCULOSKELETAL: No joint swelling or deformity. EXTREMITIES: No cyanosis, clubbing, or pedal edema. NEUROLOGICAL: Gross neurological examination did not reveal any focal deficits. SKIN: No rashes. Assessment and Plan Plan: -Preoperative clearance: Patient is low operative risk for shoulder surgery. Patient has a dislocated right shoulder. Pain management as per primary service Reglan will be discontinued because of her history of Parkinson's. -Parkinson's: Patient's symptoms are very well controlled and patient will be resumed on carbidopa levodopa -Right shoulder do dislocation: Pain management due to prophylaxis per primary service. Avoid medications that can cause excessive from the side effects.
--- NOTE | 2020-02-01 12:12 | P.HPOR ---
History of Present Illness H&P Date: 01/31/20 Chief Complaint: Right shoulder dislocation Patient is a 74 year old female who presented to our office on 01/31/2020 for evaluation of her bilateral shoulder pain. Patient states that she sustained new injury to her right shoulder when she fell on 01/29/2020. Patient has history of reverse right total shoulder arthroplasty done in 2017. She has is having a lot of pain about her shoulder. She rates her pain at 9/10 today. Her right shoulder has been somewhat symptomatic again as she has had multiple falls since her last office visit. The patient's states that she had martin on her back and feels that she fell backwards and that she may have hit the door jam, door or wall when she fell. The patient is left hand dominant.She denies numbness or tingling. Review of Systems All systems: negative Constitutional: Denies chills, Denies fever Eyes: denies blurred vision, denies pain Ears, nose, mouth and throat: Denies headache, Denies sore throat Cardiovascular: Denies chest pain, Denies shortness of breath Respiratory: Denies cough Gastrointestinal: Denies abdominal pain, Denies diarrhea, Denies nausea, Denies vomiting Genitourinary: Denies dysuria, Denies hematuria Musculoskeletal: Denies myalgias Integumentary: Denies pruritus, Denies rash Neurological: Denies numbness, Denies weakness Psychiatric: Denies anxiety, Denies depression Endocrine: Denies fatigue, Denies weight change Past Medical History Past Medical History: Neurologic Disorder Additional Past Medical History / Comment(s): Hx Parkinsons. History of Any Multi-Drug Resistant Organisms: None Reported Past Surgical History: Hysterectomy Additional Past Surgical History / Comment(s): Right shoulder surgery Past Anesthesia/Blood Transfusion Reactions: No Reported Reaction Additional Past Anesthesia/Blood Transfusion Reaction / Comment(s): ponv after hysterectomy. pt lives with spouse in ranch style home that has 3 steps into home. uses cane/walker as needed. no outside services. used to work in billing dept Past Psychological History: Anxiety, Depression Additional Psychological History / Comment(s): occ depresion r/t to med issues, but no thought of wanting to harm self. Smoking Status: Never smoker Past Alcohol Use History: Rare Additional Past Alcohol Use History / Comment(s): smoked occ in her 20's Past Drug Use History: None Reported - Past Family History Mother Family Medical History: No Reported History Additional Family Medical History / Comment(s): alcholic Father Family Medical History: No Reported History Additional Family Medical History / Comment(s): alcoholic Medications and Allergies Home Medications Medication Instructions Recorded Confirmed Type Carbidopa-Levodopa 25-100 mg 1 tab PO TID 04/01/16 01/31/20 History [Sinemet 25-100 mg] Meloxicam [Mobic] 7.5 mg PO BID 04/01/16 01/31/20 History Acetaminophen Tab [Tylenol] 325 mg PO TID PRN 01/31/20 01/31/20 History Allergies Allergy/AdvReac Type Severity Reaction Status Date / Time gabapentin [From Neurontin] AdvReac Severe FALLING Verified 01/31/20 18:45 Physical Examination General Exam: Constitutional: Patient is adequately groomed with no evidence of malnutrition. Skin: There are no rashes, ulcerations or lesions in the regions examined. Mental Status: Patient is oriented to time, place and person. Mood and affect are appropriate. Respiratory: No labored effort. No accessory muscle use. HEENT: Normal cephalic atraumatic. Extraocular movements are intact. Right shoulder: There is obvious dislocation of the reverse total shoulder arthroplasty. Patient is not put through range of motion or strength testing today. Neurovascular status is intact. Circulatory status is intact. Results Right shoulder: X-rays show the reverse total shoulder is dislocated. There is no evidence of fracture Assessment and Plan (1) Dislocation of right shoulder joint Narrative/Plan: The clinical and x-ray findings were discussed with the patient and her . Natural history is discussed. The possibility of recurrence, worsening, and/or the need for further management was addressed with the patient at length. Options of treatment were reviewed including observation, conservative treatme nt, as well as the possibility of surgical intervention in the form of reduction of reverse total shoulder arthroplasty versus open reduction of reverse total shoulder arthroplasty. We discussed that there is a possibility of an open procedure if unable to reduce the implant under sedation. She is being admitted directly to the hospital from the office today. She is in considerable pain and I will try and get her shoulder reduced as soon as tomorrow. 02/01/20. Plan will be to proceed with closed versus open reduction under sedation and possible exchange of component. The patients questions were answered to the best of my ability in a language that was understood and the patient agrees with the plan. Current Visit: Yes Status: Acute Priority: Medium Code(s): S43.004A - UNSPECIFIED DISLOCATION OF RIGHT SHOULDER JOINT, INIT ENCNTR SNOMED Code(s): 103391218 Time with Patient: Less than 30
[2020-02-01] MEDS ORDERED: IV FLUID CONTINUATION 1,000 ML IV ONE (15:44)
[2020-02-01] MEDS ORDERED: TRANEXAMIC ACID 1,000 MG in SODIUM CHLORIDE 0.9% 100 ML IVPB ONE (16:30)
[2020-02-01] MEDS ORDERED: MIDAZOLAM 2 MG/2 ML VIAL ONE (16:58)
[2020-02-01] MEDS ORDERED: SUCCINYLCHOLINE CHLORIDE 100 MG/5 ML SYR IV ONE (16:58)
[2020-02-01] MEDS ORDERED: TRANEXAMIC ACID 1,000 MG/10 ML VIAL ONE (16:58)
[2020-02-01] MEDS ORDERED: SODIUM CHLORIDE 0.9% 100 ML BAG ONE (16:58)
[2020-02-01] MEDS ORDERED: PHENYLEPHRINE 10 MG/ML VIAL ONE (16:58)
[2020-02-01] MEDS ORDERED: ROCURONIUM 10 MG/ML (10 ML VIAL) IV ONE (16:58)
[2020-02-01] MEDS ORDERED: fentaNYL (PF) 50 MCG/ML 2 ML AMP ONE (16:58)
[2020-02-01] MEDS ORDERED: PROPOFOL 10 MG/ML 20 ML VIAL IV ONE (16:58)
[2020-02-01] MEDS ORDERED: NEOSTIGMINE 1 MG/ML 10 ML VIAL ONE (16:58)
[2020-02-01] MEDS ORDERED: LIDOCAINE 1% INJ 10MG/ML (20 ML MDV) ONE (16:58)
[2020-02-01] MEDS ORDERED: GLYCOPYRROLATE 0.2 MG/ML 2 ML VIAL ONE (16:58)
[2020-02-01] MEDS ORDERED: LACTATED RINGERS 1,000 ML IV ONE (17:58)
[2020-02-01] MEDS ORDERED: ceFAZolin 3,000 MG in SODIUM CHLORIDE 0.9% IRRIGATIO 3,000 ML IRRIGATION ONE (17:58)
[2020-02-01] MEDS ORDERED: METOCLOPRAMIDE 5 MG/ML 2 ML VIAL IVP PRN (18:44)
[2020-02-01] MEDS ORDERED: PROCHLORPERAZINE SUPPOSITORY 25 MG SUPP RECTAL PRN (18:44)
[2020-02-01 19:54] VITALS: RESP 16
[2020-02-01] MEDS: LACTATED RINGERS 1,000 ML IV SCH (20:09)
[2020-02-01] MEDS: HYDROcodone/APAP 5-325MG 1 EACH TAB PO PRN (20:20)
[2020-02-02] MEDS: LACTATED RINGERS 1,000 ML IV SCH (03:53)
[2020-02-02] MEDS: HYDROcodone/APAP 5-325MG 1 EACH TAB PO PRN (03:54)
[2020-02-02 06:24] LABS: Basophils % (A) 0 %; Eosinophils # (A) 0.2 k/uL (0-0.7); Eosinophils % (A) 2 %; HCT 25.5 % (34.0-46.0); HGB 8.1 gm/dL (11.4-16.0); Hypochromasia Moderate; Lymphocytes # (A) 1.4 k/uL (1.0-4.8); Lymphocytes % (A) 22 %; MCH 26.6 pg (25.0-35.0); MCHC 31.9 g/dL (31.0-37.0); MCV 83.4 fL (80.0-100.0); Mean Platelet Volume 6.8; Monocytes # (A) 0.4 k/uL (0-1.0); Monocytes % (A) 7 %; Neutrophils # (A) 4.3 k/uL (1.3-7.7); Neutrophils % (A) 67 %; Platelet Count 319 k/uL (150-450); RBC 3.06 m/uL (3.80-5.40); WBC 6.4 k/uL (3.8-10.6)
[2020-02-02] MEDS: CARBIDOPA-LEVODOPA 25-100 MG 1 EACH TAB PO SCH (07:27)
[2020-02-02 08:21] VITALS: BP 124/70; PULSE 103; TEMP 99.7
[2020-02-02 09:57] LABS: African American GFR (CKD) >90 (>60 ml/min/1.73 sqM); Anion Gap 3 mmol/L; Blood Urea Nitrogen 11 mg/dL (7-17); Calcium 8.1 mg/dL (8.4-10.2); Carbon Dioxide 25 mmol/L (22-30); Chloride 109 mmol/L (98-107); Glucose 98 mg/dL (74-99); Non-African American GFR(CKD) >90 (>60 ml/min/1.73 sqM); Potassium 3.9 mmol/L (3.5-5.1); Sodium 137 mmol/L (137-145)
[2020-02-02] MEDS ORDERED: ACETAMINOPHEN TAB 325 MG TAB PO PRN (10:11)
--- NOTE | 2020-02-02 11:33 | P.DS ---
Providers Date of admission: 01/31/20 16:25 Expected date of discharge: 02/02/20 Attending physician: Tomas Clemons Consults: 01/31/20 16:14 Consult Physician Routine Consulting Provider: Chacho Lopez Consult Reason/Comments: medical management Do you want consulting provider notified?: Yes Primary care physician: Susan Villalobos - Discharge Diagnosis(es) (1) Dislocation of right shoulder joint Patient was admitted to the OR on 02/01/2020 to undergo an open reduction of right reverse total shoulder arthroplasty. She had failed conservative measures as an outpatient and desired to proceed with elective surgery after given informed consent. She underwent the above procedure which she tolerated well without complication. Postoperative hospital course has remained without complication. On day of discharge she is afebrile, vital signs stable, labs within acceptable ranges, tolerating by mouth meds and diet, voiding without difficulty, positive flatus, denies abdominal pain or calf pain, pain is controlled on oral pain medication and has no new complaints. Wound is benign, neurovascular status is intact, calf is soft and nontender, abdomen soft and nontender. Review of systems is negative for numbness, tingling, fever, chills, chest pain, shortness of breath, nausea, vomiting, dizziness, headaches, slurred speech or other. Current Visit: Yes Status: Acute Priority: Medium Procedures: Open reduction of right reverse total shoulder Patient Condition at Discharge: Fair Plan - Discharge Summary Discharge Rx Participant: No New Discharge Prescriptions: New traMADol HCL [Ultram] 50 mg PO Q4HR PRN #42 tab PRN Reason: Pain Sennosides-Docusate Sodium [Senokot-S] 2 each PO HS PRN #30 tab PRN Reason: Constipation Continue Carbidopa-Levodopa 25-100 mg [Sinemet 25-100 mg] 1 tab PO TID Acetaminophen Tab [Tylenol] 325 mg PO TID PRN PRN Reason: Pain Discontinued Meloxicam [Mobic] 7.5 mg PO BID Discharge Medication List Carbidopa-Levodopa 25-100 mg [Sinemet 25-100 mg] 1 tab PO TID 04/01/16 [History] Acetaminophen Tab [Tylenol] 325 mg PO TID PRN 01/31/20 [History] Sennosides-Docusate Sodium [Senokot-S] 2 each PO HS PRN #30 tab 02/02/20 [Rx] traMADol HCL [Ultram] 50 mg PO Q4HR PRN #42 tab 02/02/20 [Rx] Follow up Appointment(s)/Referral(s): [facility], [NON-STAFF] - 1-2 Days Tomas Clemons MD [STAFF PHYSICIAN] - 02/09/20 2:20 pm Patient Instructions/Handouts: How to Use a Sling (DC), Shoulder Arthroscopy (DC) Activity/Diet/Wound Care/Special Instructions: right shoulder surgery completed 02/01/2020 Maintain sling at all times Take meds as directed Nonweightbearing right upper extremity Can shower and remove dressing 2-3 days Discharge Disposition: HOME WITH HOME HEALTH SERVICES
--- NOTE | 2020-02-02 13:01 | P.PN ---
Subjective Progress Note Date: 02/02/20 - Reason for Consult Preoperative clearance - History of Present Illness 34-year-old pleasant female with known history of Parkinson's and had falls in the past came in after she had a mechanical fall without syncope found to have dislocation of the right shoulder. Patient pain is better controlled at this time. Patient denied any fever chills nausea vomiting dysuria. Patient denied any significant coronary pulmonary history. Patient is a functional woman a patient denied any shortness of breath, chest pain, orthopnea, paroxysmal nocturnal dyspnea. 02/02/2020 Patient is seen in follow-up status post open reduction of right reverse total shoulder arthroplasty with orthopedic surgery. Patient was placed on blood pressure medications of hydralazine when he 5 mg 3 times daily although will discontinue upon discharge as patient was having episodes of low blood pressures with 90s systolic. Recent instructed to follow-up with primary care provider upon discharge and monitor blood pressures closely. She is a patient of Dr. Mitchell neurology outpatient and will follow-up with them as well. Home medications have been resumed. Patient will be going home today and will continue at [facility] in the outpatient setting. Patient currently denies any chest pain, shortness of breath, or palpitations. Patient denies any nausea or vomiting and tolerating diet. Instructed the patient to slowly increase diet as tolerated. Patient is passing gas and urinating with no difficulty although reports no bowel movement yet this morning. Review of systems: Constitutional: No reports of fatigue, fever, or chills Cardiovascular: No reports of chest pain or palpitations Respiratory: No reports of shortness of breath or cough GI: No reports of nausea, vomiting, or diarrhea : No reports of dysuria or retention Neurovascular: No reports of weakness or numbness All medications have been reviewed Objective - Vital Signs Vital signs: Vital Signs Temp 99.7 F H 02/02/20 08:00 Pulse 103 H 02/02/20 08:00 Resp 16 02/02/20 08:00 BP 124/70 02/02/20 08:00 Pulse Ox 93 L 02/02/20 08:00 Intake & Output 02/01/20 02/02/20 02/02/20 18:59 06:59 18:59 Intake Total 1061.5 1340 Output Total 50 45 30 Balance 1011.5 1295 -30 Intake: IV 1061.5 Intake, IV Titration 1100 Amount Lactated Ringers 1,000 ml 1000 @ 100 mls/hr IV .Q10H NEY Rx#:[id number] ceFAZolin 2 gm In Sodium 100 Chloride 0.9% 50 ml @ 100 mls/hr IVPB Q8HR NEY Rx# :[id number] Oral 240 Output: Drainage 45 30 Right 45 30 Estimated Blood Loss 50 Other: Voiding Method Diaper Diaper # Voids 1 1 - Exam GENERAL: The patient is alert and oriented x3, not in any acute distress. Well developed, well nourished. HEENT: Pupils are round and equally reacting to light. EOMI. No scleral icterus. No conjunctival pallor. Normocephalic, atraumatic. No pharyngeal erythema. No thyromegaly. CARDIOVASCULAR: S1 and S2 present. No murmurs, rubs, or gallops. PULMONARY: Chest is clear to auscultation, no wheezing or crackles. ABDOMEN: Soft, nontender, nondistended, normoactive bowel sounds. No palpable organomegaly. MUSCULOSKELETAL: No joint swelling or deformity. EXTREMITIES: No cyanosis, clubbing, or pedal edema. Right shoulder sling and surgical dressing noted that appears dry and intact NEUROLOGICAL: Gross neurological examination did not reveal any focal deficits. SKIN: No rashes. - Labs CBC & Chem 7: 02/02/20 05:55 02/02/20 05:55 Labs: Abnormal Lab Results - Last 24 Hours (Table) 02/02/20 02/02/20 Range/Units 05:55 05:55 RBC 3.06 L (3.80-5.40) m/uL Hgb 8.1 L (11.4-16.0) gm/dL Hct 25.5 L (34.0-46.0) % Chloride 109 H (98-107) mmol/L Calcium 8.1 L (8.4-10.2) mg/dL Assessment and Plan Assessment: -Preoperative clearance: Patient is low operative risk for shoulder surgery. Patient had a dislocated right shoulder. -Parkinson's: Patient's symptoms are very well controlled and patient will be resumed on carbidopa levodopa -Right shoulder dislocation status post open reduction of the right reversed total shoulder arthroplasty with orthopedic surgery Plan: Continue with current medications. Home medications resumed. Blood pressure medications discontinued as patient is low normal currently and does not take blood pressure medications in the outpatient setting. Will continue to follow along with orthopedic surgery during hospitalization. Patient will be going home with home care today.
--- NOTE | 2020-02-02 18:07 | OP ---
OPERATIVE REPORT DATE OF PROCEDURE: 02/01/2020 SURGEON: Tomas Clemons MD TRAINS SERVICE CONDUCTOR: Jordy Piña PA-C PREOPERATIVE DIAGNOSIS: Right reverse total shoulder arthroplasty dislocation. POSTOPERATIVE DIAGNOSIS: Right reverse total shoulder arthroplasty dislocation. OPERATION: Open reduction, right reverse total shoulder arthroplasty dislocation. ANESTHESIA: General endotracheal. ESTIMATED BLOOD LOSS: 50 mL. DRAINS: One deep drain. COMPLICATIONS: None apparent. DISPOSITION: Post-Anesthesia Care Unit. INDICATIONS: Cayla is a very pleasant 74-year-old female who underwent right reverse total shoulder arthroplasty for a displaced comminuted proximal humerus fracture almost 4 years ago now. She fell this past this past Friday and had pain in the shoulder. She presented to my office yesterday with a painful shoulder that she was unable to move and quite swollen. X-rays revealed anterior dislocation of her reverse shoulder arthroplasty. I admitted her to the hospital from the office with a plan of doing a closed versus open reduction and possible revision of the reverse total shoulder arthroplasty dislocation. The risks of the procedure were discussed with her and her in detail. These risks include but are not limited to risk of infection, nerve damage, bleeding, pain, continued instability in the shoulder, loosening of the implants and deep infection. There is also a small risk of deep vein thrombosis which could lead to fatal pulmonary embolism. The patient understood the risks. All of her questions were answered to her satisfaction. Appropriate informed consent was obtained. DESCRIPTION OF THE PROCEDURE: The patient was identified in the preoperative holding area. Surgical site was marked by both the patient and myself. She was given 2 grams of Ancef IV for prophylactic purposes. She was then transported to the operative suite. She was placed supine on the operating room table. General anesthetic was then administered and dosed per the anesthesia department without apparent complication. She was then placed into the beach chair position and well padded in preparation for surgery. Great care was taken to ensure that her cervical spine was in neutral alignment, well padded and maintained that way throughout the operative procedure. Great care was also taken to ensure that her legs were appropriately padded as well. The patient's right upper extremity than prepped and draped in the usual sterile fashion. A standard surgical pause was undertaken to ensure that we were operating on the correct site and that appropriate preoperative antibiotics had been given. All staff in the room were in agreement. We proceeded. The previous deltopectoral incision was then opened with a 10-blade scalpel. Dissection was carried down sharply to the deltoid fascia. Hemostasis was achieved with electrocautery. She had a fairly large hematoma. The capsule had split the deltoid in the anterolateral area. This was likely lateral to the deltopectoral interval. I decided to go just through this area. The capsule was then entered utilizing the electrocautery. We then evacuated the hematoma. This deltoid split approach gave me good access then to the prosthesis. I was able to inspect the glenoid. The glenoid sphere was still in proper position. There was no loosening and in the proximal humerus also there was no loosening of the stem, either. I then reduced the dislocation. It was a relatively difficult reduction. The shoulder was stable once it was reduced. Given Cayla's advanced Parkinson's status as well as the fact that she was very osteopenic and had poor bone quality, I made a decision at this point not to revise the prosthesis in any way. As I said, it was relatively stable throughout a full range of motion once I had reduced it. So at this point in time no further work was deemed necessary. The shoulder was then thoroughly irrigated with 3 liters of sterile saline solution with antibiotic added via pulse lavage. Any bleeders were cauterized with electrocautery. I did place a deep drain anteriorly because this was the area of the hematoma. This was then brought out superiorly away from the incision. The deltoid split was then closed with 0 Vicryl interrupted suture. Subcutaneous tissue was closed with 2-0 Vicryl interrupted suture. The skin was closed with a running 3-0 Quill suture. Dermabond was then applied to the incision. A sterile compressive dressing was then applied. The patient's right upper extremity was placed into a shoulder immobilizer. All sponge and needle counts were deemed correct prior to closure. The patient tolerated the procedure without apparent complication. She was transferred to the recovery room in stable condition. MMODL / IJN: [id number] /
== END 2020-02-02 12:37 | disposition home health service (06) | DRG 517 ==
LOC: 5NMEDONC 16:25
PROVIDERS: ADMIT Orthopaedic Surgery Sports Medicine; ATTEND Orthopaedic Surgery Sports Medicine
PROC: 0RWJ0JZ Revision of Synthetic Substitute in Right Shoulder Joint, Open Approach (ICD-10-PCS; principal; 2020-02-02)
DX: T84.028A Dislocation of other internal joint prosthesis, initial encounter (principal); F41.9 Anxiety disorder, unspecified; F32.9 Major depressive disorder, single episode, unspecified; G20 Parkinson's disease; W19.XXXA Unspecified fall, initial encounter; Y79.2 Prosthetic and other implants, materials and accessory orthopedic devices associated with adverse incidents; Z79.1 Long term (current) use of non-steroidal anti-inflammatories (NSAID); Z90.710 Acquired absence of both cervix and uterus; Z81.1 Family history of alcohol abuse and dependence; Z88.8 Allergy status to other drugs, medicaments and biological substances
CPT/HCPCS: 80048; 85025; 93005

== ENCOUNTER 2020-02-09 12:05 | Inpatient (IN) | payer MEDICARE ==
--- NOTE | 2020-02-09 13:38 | ED ---
Fall HPI - General Chief Complaint: Fall Stated Complaint: Fall Time Seen by Provider: 02/09/20 12:39 Source: patient, EMS Mode of arrival: EMS - History of Present Illness Initial Comments: This is a 74-year-old female history of a recent revision of a right shoulder prosthesis after having dislocation states that she fell today. She was found on the floor to have her right arm behind her back. She is able to get around by herself in complains of minimal pain. The concern was for the recent surgery. She apparently try to get to the door to telemetry neighbor not to com adalberto she may have had a fever and concern for Covid 19. The patient was seen earlier by visiting nurse and told she had a temperature 101. 2 temperatures taken afterwards one by EMS 1 by the patient's family was 97.4. Patient's had no fevers chills nausea vomiting sweats cough or runny nose phlegm production dysuria hematuria or other symptoms. She denies any other injury at this time. MD Complaint: fall - Related Data Home Medications Medication Instructions Recorded Confirmed Carbidopa-Levodopa 25-100 mg 1 tab PO TID 04/01/16 01/31/20 [Sinemet 25-100 mg] Acetaminophen Tab [Tylenol] 325 mg PO TID PRN 01/31/20 01/31/20 Previous Rx's Medication Instructions Recorded Sennosides-Docusate Sodium 2 each PO HS PRN #30 tab 02/02/20 [Senokot-S] traMADol HCL [Ultram] 50 mg PO Q4HR PRN #42 tab 02/02/20 Allergies Allergy/AdvReac Type Severity Reaction Status Date / Time gabapentin [From Neurontin] AdvReac Severe Unknown Verified 02/01/20 15:51 Review of Systems ROS Statement: Those systems with pertinent positive or pertinent negative responses have been documented in the HPI. ROS Other: All systems not noted in ROS Statement are negative. Past Medical History Past Medical History: Neurologic Disorder Additional Past Medical History / Comment(s): Hx Parkinsons. History of Any Multi-Drug Resistant Organisms: None Reported Past Surgical History: Hysterectomy Additional Past Surgical History / Comment(s): Right shoulder surgery Past Anesthesia/Blood Transfusion Reactions: No Reported Reaction Additional Past Anesthesia/Blood Transfusion Reaction / Comment(s): ponv after hysterectomy. pt lives with spouse in ranch style home that has 3 steps into home. uses cane/walker as needed. no outside services. used to work in billing dept Past Psychological History: Anxiety, Depression Smoking Status: Never smoker Past Alcohol Use History: Rare Past Drug Use History: None Reported - Past Family History Mother Family Medical History: No Reported History Additional Family Medical History / Comment(s): alcholic Father Family Medical History: No Reported History Additional Family Medical History / Comment(s): alcoholic General Exam - General Exam Comments Initial Comments: Pezzer well-developed asthenic appearing female who is awake alert oriented 3 demonstrate a [place] Coma Scale of 15 Limitations: altered mental status General appearance: alert, in no apparent distress Head exam: Present: atraumatic, normocephalic, normal inspection Eye exam: Present: normal appearance, PERRL, EOMI. Absent: scleral icterus, conjunctival injection, periorbital swelling ENT exam: Present: mucous membranes dry Neck exam: Present: normal inspection. Absent: tenderness, meningismus, lymphadenopathy Respiratory exam: Present: normal lung sounds bilaterally. Absent: respiratory distress, wheezes, rales, rhonchi, stridor Cardiovascular Exam: Present: regular rate, normal rhythm, normal heart sounds. Absent: systolic murmur, diastolic murmur, rubs, gallop, clicks GI/Abdominal exam: Present: soft, normal bowel sounds. Absent: distended, tenderness, guarding, rebound, rigid Extremities exam: Present: full ROM, normal capillary refill, other (MH the right shoulder reveals a healing wound with no evidence of wound dehiscence. Mi nimal tenderness palpation no definitive deformity seen. Range of motion is limited. No other injuries noted at this time. No sensorimotor or vascular deficits). Absent: tenderness, pedal edema, joint swelling, calf tenderness Back exam: Present: normal inspection Neurological exam: Present: alert, oriented X3, CN II-XII intact Psychiatric exam: Present: normal affect, normal mood Skin exam: Present: warm, dry, intact, normal color. Absent: rash Course Vital Signs 02/09/20 12:10 Temperature 97.5 F L Pulse Rate 87 Respiratory 16 Rate Blood Pressure 164/84 O2 Sat by Pulse 98 Oximetry Medical Decision Making - Medical Decision Making I did discuss findings with patient family as well as with Dr. Clemons's group patient be admitted for ORIF today. She is to be nothing by mouth at this time. - Radiology Data Radiology results: report reviewed (I did review the imaging and report evidence of disruption of the prosthesis of the right shoulder.), image reviewed Disposition Clinical Impression: Complication of internal prosthetic right shoulder joint, Fall Disposition: ADMITTED IP TO THIS [facility] Condition: Fair Referrals: Susan Villalobos MD [Primary Care Provider] - 1-2 days
--- NOTE | 2020-02-09 13:51 | XR ---
EXAMINATION TYPE: XR shoulder complete RT DATE OF EXAM: 02/09/2020 CLINICAL HISTORY: pain TECHNIQUE: Three views of the right shoulder are obtained. COMPARISON: 05/28/2016 FINDINGS: There is disruption patient's prosthesis at the prosthetic glenohumeral joint. No osseous fractures i dentified. AC joint arthropathy. IMPRESSION: 1. As above
[2020-02-09] MEDS ORDERED: NALOXONE 0.4 MG/ML 1 ML VIAL IV PRN (14:26)
[2020-02-09 15:10] LABS: Appearance,Urine Clear (Clear); Bilirubin,Urine Negative (Negative); Blood,Urine Negative (Negative); Color,Urine Yellow; Glucose,Urine (UA) Negative (Negative); Ketones,Urine 2+ (Negative); Leukocyte Esterase,Urine Negative (Negative); Nitrite,Urine Negative (Negative); PH, Urine 6.5 (5.0-8.0); Protein,Urine Trace (Negative); Urobilinogen,Urine <2.0 mg/dL (<2.0)
[2020-02-09 15:21] LABS: ALT <6 U/L (4-34); AST 47 U/L (14-36); African American GFR (CKD) >90 (>60 ml/min/1.73 sqM); Albumin 3.6 g/dL (3.5-5.0); Alkaline Phosphatase 108 U/L (38-126); Anion Gap 5 mmol/L; Blood Urea Nitrogen 14 mg/dL (7-17); Calcium 8.5 mg/dL (8.4-10.2); Carbon Dioxide 27 mmol/L (22-30); Chloride 105 mmol/L (98-107); Creatine Kinase 123 U/L (30-135); Glucose 80 mg/dL (74-99); Non-African American GFR(CKD) >90 (>60 ml/min/1.73 sqM); Sodium 137 mmol/L (137-145); Total Bilirubin 1.3 mg/dL (0.2-1.3); Total Protein 7.1 g/dL (6.3-8.2)
[2020-02-09 15:22] LABS: Potassium 5.2 mmol/L (3.5-5.1)
[2020-02-09 15:28] LABS: INR 1.1 (<1.2); Prothrombin Time 10.9 sec (9.0-12.0)
--- NOTE | 2020-02-09 15:32 | XR ---
EXAMINATION TYPE: XR chest 1V portable DATE OF EXAM: 02/09/2020 HISTORY: Shortness of breath. COMPARISON: 02/12/2019 TECHNIQUE: Single view of the chest is submitted. FINDINGS: Demonstrated are scattered senescent parenchymal change. There is no evidence for focal infiltrate. The heart is stable. Hilar and mediastinal structures are within normal limits. Degenerative changes are seen of the dorsal spine. IMPRESSION: 1. Chronic changes without evidence for acute pulmonary disease.
[2020-02-09 15:36] LABS: Partial Thromboplastin Time 16.7 sec (22.0-30.0)
[2020-02-09] MEDS ORDERED: HYDROmorphone 0.5 MG/0.5 ML SYRINGE IVP PRN ×2 (15:48)
[2020-02-09] MEDS ORDERED: HYDROcodone/APAP 5-325MG 1 EACH TAB PO PRN ×2 (15:48)
[2020-02-09] MEDS ORDERED: HYDROmorphone 0.2 MG/1 ML SYRINGE IVP PRN (15:48)
[2020-02-09] MEDS ORDERED: SENNOSIDES-DOCUSATE SODIUM 1 EACH TAB PO PRN (15:48)
[2020-02-09] MEDS ORDERED: ONDANSETRON 4 MG/2 ML VIAL IVP PRN (15:48)
[2020-02-09] MEDS ORDERED: TEMAZEPAM 15 MG CAP PO PRN (15:48)
[2020-02-09] MEDS: LACTATED RINGERS 1,000 ML IV SCH (16:55)
[2020-02-09] MEDS ORDERED: MIDAZOLAM 2 MG/2 ML VIAL ONE (17:45)
[2020-02-09] MEDS ORDERED: PROPOFOL 10 MG/ML 20 ML VIAL IV ONE (17:45)
[2020-02-09] MEDS ORDERED: KETAMINE 10 MG/ML 20 ML VIAL ONE (17:45)
[2020-02-09] MEDS ORDERED: fentaNYL (PF) 50 MCG/ML 2 ML AMP ONE (17:45)
--- NOTE | 2020-02-09 17:50 | P.HPOR ---
History of Present Illness H&P Date: 02/09/20 Chief Complaint: Right shoulder dislocation Patient is a 74-year-old female who is s/p open reduction of right shoulder reverse total shoulder arthroplasty on 02/02/20. She states that she fell again today and presented to the ED. She states that she was found on the floor with her right arm behind her back. She is able to get around by herself and complains of minimal pain. She apparently try to get to the door to tell her neighbor not to come in as she may have had a fever and concern for Covid 19. The patient was seen earlier by visiting nurse and told she had a temperature 101. Patient's had no fevers chills nausea vomiting sweats cough or runny nose phlegm production dysuria hematuria or other symptoms. She denies any other injury at this time. Review of Systems All systems: negative Constitutional: Denies chills, Denies fever Eyes: denies blurred vision, denies pain Ears, nose, mouth and throat: Denies headache, Denies sore throat Cardiovascular: Denies chest pain, Denies shortness of breath Respiratory: Denies cough Gastrointestinal: Denies abdominal pain, Denies diarrhea, Denies nausea, Denies vomiting Genitourinary: Denies dysuria, Denies hematuria Musculoskeletal: Denies myalgias Integumentary: Denies pruritus, Denies rash Neurological: Denies numbness, Denies weakness Psychiatric: Denies anxiety, Denies depression Endocrine: Denies fatigue, Denies weight change Past Medical History Past Medical History: GERD/Reflux, Neurologic Disorder, Osteoarthritis (OA) Additional Past Medical History / Comment(s): Parkinsons, falls, diverticular disease, low back pain, History of Any Multi-Drug Resistant Organisms: None Reported Past Surgical History: Hysterectomy, Joint Replacement, Orthopedic Surgery Additional Past Surgical History / Comment(s): 01/31/20 open reduction R shoulder dislocation, 2017 total reverse R shoulder arthroplasty, D&C, colonoscopy, bartholin cyst Past Anesthesia/Blood Transfusion Reactions: No Reported Reaction Additional Past Anesthesia/Blood Transfusion Reaction / Comment(s): ponv after hysterectomy. Smoking Status: Never smoker - Past Family History Mother Family Medical History: No Reported History Additional Family Medical History / Comment(s): alcholic Father Family Medical History: No Reported History Additional Family Medical History / Comment(s): alcoholic Medications and Allergies Home Medications Medication Instructions Recorded Confirmed Type Carbidopa-Levodopa 25-100 mg 1 tab PO TID 04/01/16 02/09/20 History [Sinemet 25-100 mg] Acetaminophen Tab [Tylenol] 325 mg PO TID PRN 01/31/20 02/09/20 History Sennosides-Docusate Sodium 2 each PO HS PRN #30 tab 02/02/20 02/09/20 Rx [Senokot-S] traMADol HCL [Ultram] 50 mg PO Q4HR PRN #42 tab 02/02/20 02/09/20 Rx Allergies Allergy/AdvReac Type Severity Reaction Status Date / Time gabapentin [From Neurontin] AdvReac Severe Unknown Verified 02/09/20 16:55 Physical Examination Inspection shows well healing surgical wound with obvious dislocation deformity and hematoma. Shoulder ROM not tested due to dislocation. Nontender at elbow and wrist. Painless ROM of elbow and wrist. Neurovascular status intact with the right upper extremity with gross motor and sensation throughout. 2+ radial pulses present. Less than 2 second capillary refill is present. Results X-rays of the right shoulder show dislocation of right shoulder with components of reverse total shoulder arthroplasty intact. No evidence of fracture. - Labs Labs: Abnormal Lab Results - Last 24 Hours (Table) 02/09/20 02/09/20 02/09/20 Range/Units 15:00 15:00 15:00 APTT 16.7 L (22.0-30.0) sec Potassium 5.2 H (3.5-5.1) mmol/L Creatinine 0.39 L (0.52-1.04) mg/dL AST 47 H (14-36) U/L Urine Protein Trace H (Negative) Urine Ketones 2+ H (Negative) Coagulation 02/09/20 Range/Units 15:00 INR 1.1 (<1.2) Result Diagrams: 02/09/20 15:00 - Diagnostic results Shoulder x-ray: report reviewed, image reviewed Assessment and Plan (1) Dislocation of right shoulder joint Narrative/Plan: Patient has been reviewed with Dr. Clemons. We've recommended proceeding with closed versus open reduction of right reverse total shoulder arthroplasty. Patient understands and and agrees to proceed with procedure. She'll be placed in a sling and swath to remain on at all times postoperatively. She is to be nonweightbearing. Plan will be to discharge tomorrow with home health. Internal medicine has been consulted for medical management. Current Visit: No Status: Acute Priority: Medium Code(s): S43.004A - UNSPECIFIED DISLOCATION OF RIGHT SHOULDER JOINT, INIT ENCNTR SNOMED Code(s): 763862522 Time with Patient: Less than 30
[2020-02-09] MEDS: SODIUM CHLORIDE 0.9% 1,000 ML IV SCH (19:26)
[2020-02-09] MEDS: CARBIDOPA-LEVODOPA 25-100 MG 1 EACH TAB PO SCH (22:35)
--- NOTE | 2020-02-09 22:48 | P.CONS ---
History of Present Illness - Reason for Consult Consult date: 02/09/20 Medical management - Chief Complaint Fall with right shoulder pain - History of Present Illness 74-year-old female history of a recent revision of a right shoulder prosthesis after having dislocation states that she fell today. She was found on the floor to have her right arm behind her back. She is able to get around by herself in complains of minimal pain. The concern was for the recent surgery. She apparently try to get to the door to telemetry neighbor not to command she may have had a fever and concern for Covid 19. The patient was seen earlier by visiting nurse and told she had a temperature 101. 2 temperatures taken afterwards one by EMS 1 by the patient's family was 97.4. Patient's had no fevers chills nausea vomiting sweats cough or runny nose phlegm production dysuria hematuria or other symptoms. She denies any other injury at this time. Workup in ED including shoulder x-ray revealed destruction of prosthesis and prostatic glenohumeral joint no osseous fractures identified; patient is admitted to the hospital and is scheduled for or later today for right shoulder surgery Review of Systems REVIEW OF SYSTEMS: CONSTITUTIONAL: No fever, no malaise, no fatigue. HEENT: No recent visual problems or hearing problems. Denied any sore throat. CARDIOVASCULAR: No chest pain, orthopnea, PND, no palpitations, no syncope. PULMONARY: No shortness of breath, no cough, no hemoptysis. GASTROINTESTINAL: No diarrhea, no nausea, no vomiting, no abdominal pain. NEUROLOGICAL: No headaches, no weakness, no numbness. HEMATOLOGICAL: Denies any bleeding or petechiae. GENITOURINARY: Denies any burning micturition, frequency, or urgency. MUSCULOSKELETAL/RHEUMATOLOGICAL: Right shoulder pain. ENDOCRINE: Denies any polyuria or polydipsia. The rest of the 14-point review of systems is negative. Past Medical History Past Medical History: GERD/Reflux, Neurologic Disorder, Osteoarthritis (OA) Additional Past Medical History / Comment(s): Parkinsons, falls, diverticular disease, low back pain, History of Any Multi-Drug Resistant Organisms: None Reported Past Surgical History: Hysterectomy, Joint Replacement, Orthopedic Surgery Additional Past Surgical History / Comment(s): 01/31/20 open reduction R shoulder dislocation, 2017 total reverse R shoulder arthroplasty, D&C, colonoscopy, bartholin cyst Past Anesthesia/Blood Transfusion Reactions: No Reported Reaction Additional Past Anesthesia/Blood Transfusion Reaction / Comm: ponv after hysterectomy. Smoking Status: Never smoker - Past Family History Mother Family Medical History: No Reported History Additional Family Medical History / Comment(s): alcholic Father Family Medical History: No Reported History Additional Family Medical History / Comment(s): alcoholic Medications and Allergies Home Medications Medication Instructions Recorded Confirmed Type Carbidopa-Levodopa 25-100 mg 1 tab PO TID 04/01/16 02/09/20 History [Sinemet 25-100 mg] Acetaminophen Tab [Tylenol] 325 mg PO TID PRN 01/31/20 02/09/20 History Sennosides-Docusate Sodium 2 each PO HS PRN #30 tab 02/02/20 02/09/20 Rx [Senokot-S] traMADol HCL [Ultram] 50 mg PO Q4HR PRN #42 tab 02/02/20 02/09/20 Rx Allergies Allergy/AdvReac Type Severity Reaction Status Date / Time gabapentin [From Neurontin] AdvReac Severe Unknown Verified 02/09/20 14:45 Physical Exam Vitals: Vital Signs Temp Pulse Pulse Resp BP BP Pulse Ox 02/09/20 15:58 98.3 F 81 18 159/84 98 02/09/20 15:09 97.5 F L 77 16 151/84 97 02/09/20 14:18 77 16 151/84 97 02/09/20 12:10 97.5 F L 87 16 164/84 98 Intake and Output 02/09/20 02/09/20 02/09/20 06:59 14:59 22:59 Output Total 150 Balance -150 Output: Urine 150 Uretheral ([place]) 150 Other: Weight 48.988 kg 48.988 kg - Constitutional General appearance: Present: average body habitus, cooperative, no acute distress Eyes: Present: anicteric sclerae, EOMI, PERRLA, normal appearance Neck: Present: normal ROM. Absent: lymphadenopathy, rigidity, thyromegaly Carotids: negative: bruit present Thyroid: bilateral: normal size, negative: enlarged, nodule Respiratory: bilateral: CTA, negative: rales, rhonchi, wheezing Cardiovascular; regular; Heart sounds: normal: S1, S2 Abnormal Heart Sounds: Absent: systolic murmur, diastolic murmur General gastrointestinal: Present: normal bowel sounds, soft. Absent: distended, organomegaly, tenderness Genitourinary Comment(s): deferred Integumentary: Present: normal turgor. Absent: jaundiced, rash, ulcer Neurologic: Present: CNII-XII intact. Absent: focal deficits Musculoskeletal: the right shoulder reveals a healing wound with no evidence of wound dehiscence. Minimal tenderness palpation no definitive deformity seen. Range of motion is limited. Psychiatric: Present: A&O x's 3, appropriate affect, intact judgment & insight Results CBC & Chem 7: 02/09/20 15:00 Labs: Abnormal Lab Results - Last 24 Hours (Table) 02/09/20 02/09/20 02/09/20 Range/Units 15:00 15:00 15:00 APTT 16.7 L (22.0-30.0) sec Potassium 5.2 H (3.5-5.1) mmol/L Creatinine 0.39 L (0.52-1.04) mg/dL AST 47 H (14-36) U/L Urine Protein Trace H (Negative) Urine Ketones 2+ H (Negative) Assessment and Plan Assessment: 1. Fall/complication of internal prostatic the right shoulder joint - Patient is started on [place] 53 25 mg every 6 hours when necessary with Dilaudid 0.2 mg IV every 3 hours when necessary for pain control - Patient is scheduled for or for right shoulder arthroplasty 2. Mild hyperkalemia; borderline; patient currently not on any supplemental po tassium; we will continue with IV fluid hydration and monitor electrolytes and 4 hours 3. Parkinson's disease; continue with home dose of Sinemet DVT prophylaxis; SCDs only for planned surgery CODE STATUS; full code
[2020-02-10] MEDS: SODIUM CHLORIDE 0.9% 1,000 ML IV SCH (02:17)
[2020-02-10] MEDS: LACTATED RINGERS 1,000 ML IV SCH (02:18)
[2020-02-10 05:10] VITALS: RESP 17
[2020-02-10] MEDS: CARBIDOPA-LEVODOPA 25-100 MG 1 EACH TAB PO SCH (07:34)
[2020-02-10 07:59] VITALS: BP 145/73; PULSE 95; TEMP 98.9
--- NOTE | 2020-02-10 10:57 | P.DS ---
Providers Date of admission: 02/09/20 14:26 Expected date of discharge: 02/10/20 Attending physician: Tomas Clemons Consults: 02/09/20 15:48 Consult Physician Routine Consulting Provider: Chacho Lopez Consult Reason/Comments: medical management Do you want consulting provider notified?: Yes Primary care physician: Susan Villalobos - Discharge Diagnosis(es) (1) Dislocation of right shoulder joint Patient was admitted to the OR on 02/09/20 to undergo closed reduction of right shoulder reverse total shoulder arthroplasty after suffering a fall at home resulting in dislocation.She had failed conservative measures as an outpatient and desired to proceed with elective surgery after given informed consent. She underwent the above procedure which she tolerated well without complication. Postoperative hospital course has remained without complication. On day of discharge she is afebrile, vital signs stable, labs within acceptable ranges, tolerating by mouth meds and diet, voiding without difficulty, positive flatus, denies abdominal pain or calf pain, pain is controlled on oral pain medication and has no new complaints. Wound is benign, neurovascular status is intact, calves are soft and nontender, abdomen soft and nontender. Review of systems is negative for numbness, tingling, fever, chills, chest pain, shortness of breath, nausea, vomiting, dizziness, headaches, slurred speech or other. Current Visit: No Status: Acute Priority: Medium Procedures: Closed reduction of right shoulder reverse total shoulder arthroplasty Patient Condition at Discharge: Fair Plan - Discharge Summary Discharge Rx Participant: No New Discharge Prescriptions: No Action Carbidopa-Levodopa 25-100 mg [Sinemet 25-100 mg] 1 tab PO TID Acetaminophen Tab [Tylenol] 325 mg PO TID PRN PRN Reason: Pain traMADol HCL [Ultram] 50 mg PO Q4HR PRN #42 tab PRN Reason: Pain Sennosides-Docusate Sodium [Senokot-S] 2 each PO HS PRN #30 tab PRN Reason: Constipation Discharge Medication List Carbidopa-Levodopa 25-100 mg [Sinemet 25-100 mg] 1 tab PO TID 04/01/16 [History] Acetaminophen Tab [Tylenol] 325 mg PO TID PRN 01/31/20 [History] Sennosides-Docusate Sodium [Senokot-S] 2 each PO HS PRN #30 tab 12/16/20 [Rx] traMADol HCL [Ultram] 50 mg PO Q4HR PRN #42 tab 02/02/20 [Rx] Follow up Appointment(s)/Referral(s): Susan Villalobos MD [Primary Care Provider] - 1-2 days Tomas Clemons MD [STAFF PHYSICIAN] - 10 Days Activity/Diet/Wound Care/Special Instructions: maintain sling at all times non weight bearing right upper extremity F/U in office in one week Discharge Disposition: HOME SELF-CARE
--- NOTE | 2020-02-10 15:47 | OP ---
OPERATIVE REPORT DATE OF PROCEDURE: 02/09/2020. PREOPERATIVE DIAGNOSIS: Right reversed total shoulder arthroplasty dislocation. POSTOPERATIVE DIAGNOSIS: Right reversed total shoulder arthroplasty dislocation. PROCEDURE PERFORMED: Closed reduction, right reverse total shoulder arthroplasty. ANESTHESIA: Conscious sedation. ESTIMATED BLOOD LOSS: None. SURGEON: Tomas Clemons MD. TERMITE TREATER: Jordy BERNSTEIN. DISPOSITION: Postanesthesia care unit. INDICATIONS: Cayla is a very pleasant 74-year-old female, well known to [facility]. She underwent a reverse total shoulder arthroplasty for a highly comminuted proximal humerus fracture nearly 4 years ago. She carries a diagnosis of advanced Parkinson disease. She has had multiple falls recently. Most recently she underwent open reduction of her reverse total shoulder arthroplasty dislocation a little over a week ago by myself. She subsequently was at home earlier today and had another fall in her home and she has again dislocated the reverse shoulder arthroplasty. She was brought to [facility]. We were notified. She was admitted to [facility] and our goal is to proceed with a closed reduction with possible open reduction of her reverse shoulder arthroplasty. Cayla is in agreement. She would like to proceed. The risks of procedure were discussed with her in detail. These risks include, but are not limited to risk of failure to reduce the shoulder, infection, nerve damage, bleeding, pain, if I need to do an open procedure to reduce it. She is also at risk for further dislocations of the shoulder if unfortunately she continues to fall. All of her questions were answered to her satisfaction. Appropriate informed consent was obtained. DESCRIPTION OF PROCEDURE: The patient identified in preoperative holding area. The procedural side was marked by both the patient and myself. She was then transferred to the operative suite. She was placed supine on the operating room table. Conscious sedation was then administered and dosed per the anesthesia department without apparent complication. Fluoroscopy was utilized. We did have a counter-traction done by my inside sales assistant, Jordy Piña. I was then able to utilize traction and manipulation with my hand to reduce the dislocation. It was a fairly difficult reduction. The shoulder was then stable throughout a range of motion. The reduction was confirmed with fluoroscopic imaging. Her right upper extremity was placed into a standard sling. Conscious sedation was reversed. She was transferred to recovery room in stable condition. MMODL / IJN: [id number] /
--- NOTE | 2020-02-12 13:08 | FL ---
Fluoroscopy HISTORY: Shoulder dislocation 11 seconds fluoroscopy time supplied to the referring clinician. 1 intraoperative C-arm images docum ent the procedure. See dictated report from orthopedic surgery.
--- NOTE | 2020-02-12 13:09 | XR ---
Limited right shoulder HISTORY: Shoulder dislocation Single intraoperative C-arm image documents the procedure
== END 2020-02-10 13:01 | disposition home or self-care (01) | DRG 561 ==
LOC: EC 12:05 → 4SSUR 14:26
PROVIDERS: ADMIT Orthopaedic Surgery Sports Medicine; ATTEND Orthopaedic Surgery Sports Medicine
PROC: 0RWJXJZ Revision of Synthetic Substitute in Right Shoulder Joint, External Approach (ICD-10-PCS; principal; 2020-02-09 11:00)
DX: T84.028A Dislocation of other internal joint prosthesis, initial encounter (principal); E87.5 Hyperkalemia; G20 Parkinson's disease; Z96.611 Presence of right artificial shoulder joint; Z20.828 Contact with and (suspected) exposure to other viral communicable diseases; K21.9 Gastro-esophageal reflux disease without esophagitis; K57.90 Diverticulosis of intestine, part unspecified, without perforation or abscess without bleeding; M54.5 Low back pain; M19.90 Unspecified osteoarthritis, unspecified site; R29.6 Repeated falls; Z79.899 Other long term (current) drug therapy; Z90.710 Acquired absence of both cervix and uterus; Z87.42 Personal history of other diseases of the female genital tract; Z86.59 Personal history of other mental and behavioral disorders; Z98.890 Other specified postprocedural states; Z88.8 Allergy status to other drugs, medicaments and biological substances; Y83.1 Surgical operation with implant of artificial internal device as the cause of abnormal reaction of the patient, or of later complication, without mention of misadventure at the time of the procedure; W19.XXXA Unspecified fall, initial encounter; Y92.009 Unspecified place in unspecified non-institutional (private) residence as the place of occurrence of the external cause; Z81.1 Family history of alcohol abuse and dependence
CPT/HCPCS: 51702; 71045; 80053; 81003; 82550; 85610; 85730; 87635; 93005; 99285